=== PATIENT | male | born 1960 | race Caucasian/White ===

== ENCOUNTER 2017-07-13 05:28 | Inpatient (IN) | payer BC ==
[2017-07-13] MEDS ORDERED: Lactated Ringers 1,000 ML IV SCH (06:30)
[2017-07-13] MEDS ORDERED: Thrombin (Bovine) 5,000 Unit Kit ONE (06:53)
[2017-07-13] MEDS ORDERED: ceFAZolin 2 GM in Sodium Chloride 0.9% 50 ML IV ONE (07:00)
[2017-07-13] MEDS ORDERED: Albuterol/Ipratropium 3.0-0.5 MG/3 ML Neb Soln NEB ONE (07:25)
[2017-07-13] MEDS ORDERED: Dexamethasone 4 MG/ML SDV ONE (07:28)
[2017-07-13] MEDS ORDERED: Propofol 200 MG/20 ML SDV ONE ×2 (07:28→09:48)
[2017-07-13] MEDS ORDERED: Ondansetron 4 MG/2 ML SDV ONE (07:28)
[2017-07-13] MEDS ORDERED: Rocuronium 50 MG/5 ML Vial ONE (07:28)
[2017-07-13] MEDS ORDERED: Ketamine 500 MG/5 ML MDV IV ONE (07:45)
[2017-07-13] MEDS ORDERED: Linezolid 200 MG/100 ML Bag IV ONE (09:21)
[2017-07-13] MEDS ORDERED: Naloxone 0.4 MG/ML SDV IV PRN (10:05)
[2017-07-13] MEDS: HYDROmorphone/Normal Saline 15 MG/30 ML PCA IV PRN ×2 (10:10→11:15)
[2017-07-13] MEDS ORDERED: hydrOXYzine HCl 100 MG/2 ML SDV IM ONE (11:29)
[2017-07-13] MEDS: Dextrose 5%-Lactated Ringers 1,000 ML IV SCH ×2 (11:57→20:08)
[2017-07-13] MEDS ORDERED: Thrombin (Bovine) 5,000 Unit Kit INJECT ONE (11:58)
[2017-07-13] MEDS ORDERED: hydrOXYzine HCl 100 MG/2 ML SDV IM PRN (12:38)
[2017-07-13] MEDS ORDERED: hydrOXYzine HCl 25 MG Tab PO PRN (12:39)
[2017-07-13] MEDS ORDERED: Cyclobenzaprine 10 MG Tab PO PRN (12:40)
--- NOTE | 2017-07-13 16:33 | OR ---
DATE OF PROCEDURE: 07/13/2017 PREOPERATIVE DIAGNOSIS: Lumbar stenosis, L5-S1. POSTOPERATIVE DIAGNOSIS: Lumbar stenosis, L5-S1. PROCEDURE: Anterior lumbar interbody fusion, L5-S1. CO SURGEON: Rodriguez Herrera MD BREAST BUFFER: KRYS Beckford. ANESTHESIA: General endotracheal intubation. FLUID: Lactated Ringer solution. ESTIMATED BLOOD LOSS: Less than 25 mL. COMPLICATIONS: None. SPECIMEN: None. DISCHARGE DISPOSITION: Stable to PACU. INSTRUMENTATION: Globus Magnify 25 x 31, 15 degree, 14-17 mm with three 30 mm screws and Signify allograft. INDICATION FOR THE PROCEDURE: The patient was seen preoperatively by myself in the clinic. 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 He had modic changes as well which supported the above-mentioned diagnosis. Preoperative imaging confirmed the above- mentioned diagnosis. Risks and benefits of the procedure were explained to the patient, and an informed consent was obtained. DETAILS OF PROCEDURE: The patient was seen preoperatively by myself and the Anesthesia Staff in the preop holding area where the operative site was marked. He was brought to the operative suite by the Anesthesia Staff where general anesthesia was administered. Neuromonitoring leads were placed. Sterile Lugo catheter was placed. The fluoroscopy unit was draped in a sterile manner. All extremities were found to be well padded. The site was prepped and draped in a sterile manner. Please see Dr. Rodriguez Herrera's notes for exposure. After adequate exposure had been obtained, I used the Bovie electrocautery unit. I used a spinal needle, rather to confirm the disk space level with lateral fluoroscopy as Dr. Herrera had done before. We then used Bovie electrocautery to demarcate the vertebral endplate margins to remove any soft tissue. We then used a pituitary, Roberts, Kerrisons, and curettes to remove the disc at this level and rough up the inferior endplate of L5, superior endplate of S1. I then used negrita to distract up to a 15 and visualize as this seemed to be the more than adequate. We then placed Signify allograft on the right side of the disc and then inserted our implant and expanded it. We then placed our screws by using an awl first and then placing the screws, locking the screws with locking mechanism on the anterior plate portion of the implant. After this had been accomplished, we then took final films and then please see Dr. Rodriguez Herrera's note for closure. Warren Herrera DO /[id number]
[2017-07-13] MEDS: Gabapentin 300 MG Cap PO SCH ×2 (16:47→21:14)
[2017-07-13] MEDS: ceFAZolin 2 GM in Sodium Chloride 0.9% 50 ML IV SCH ×2 (17:05→23:28)
[2017-07-13] MEDS: Tamsulosin 0.4 MG Cap.ER PO SCH (21:01)
[2017-07-13] MEDS ORDERED: Lactated Ringers 500 ML IV SCH (23:00)
[2017-07-14] MEDS: Gabapentin 300 MG Cap PO SCH ×4 (05:21→21:28)
[2017-07-14] MEDS: ceFAZolin 2 GM in Sodium Chloride 0.9% 50 ML IV SCH (07:36)
[2017-07-14] MEDS: Acetaminophen/HYDROcodone 325-5 MG Tab PO PRN ×2 (08:25→15:48)
[2017-07-14] MEDS: Hydrochlorothiazide/Triamterene 25-37.5 MG Cap PO SCH (08:43)
[2017-07-14] MEDS: Enoxaparin 40 MG/0.4 ML Syringe SUBCUT SCH (08:44)
[2017-07-14] MEDS ORDERED: Hydrochlorothiazide/Triamterene 25-37.5 MG Cap PO SCH (09:00)
[2017-07-14] MEDS ORDERED: Gabapentin 300 MG Cap PO SCH (10:00)
--- NOTE | 2017-07-14 10:09 | PN ---
DATE OF SERVICE: 07/14/2017 SUBJECTIVE: Cezar is postop day #1. Vital signs have been stable. Lugo catheter was removed at 0500 hours. He has not voided yet. He is up sitting in the chair and has been ambulating. REVIEW OF SYSTEMS: Complete review of systems negative for any pertinent positives and negatives with the exception of he is very tired. OBJECTIVE: GENERAL: Cezar Roblero is a pleasant 57-year-old male. He is sitting up in the chair, as stated above. VITAL SIGNS: TPR 99.9, 89, 16, and blood pressure 124/94. HEENT: Negative. NECK: Supple. HEART: Regular rate and rhythm. LUNGS: Clear. ABDOMEN: Dressings dry and intact. Abdominal binder is on. BACK: He has his back brace on. EXTREMITIES: Without peripheral edema. ASSESSMENT: Anterior lumbar interbody fusion at L5-S1 for lumbar stenosis at L5-S1. PLAN: 1. Regular diet. 2. Senna Plus one tab p.o. b.i.d. 3. Neurontin 600 mg p.o. q.i.d. 4. Dyazide 25/37.5 mg 1 tablet daily. 5. Decrease D5LR to 100 mL per hour. 6. Good pulmonary toilet encouraged. 7. Discontinue TRANSITION MGR. 8. Discontinue continuous pulse ox. 9. Dressing off, may shower. 10.Rx [place] 5/325 mg 1 to 2 every 4 hours p.r.n. pain. 11.We will evaluate p.r.n. or in a.m. Judith Cook PA-C /[id number]
[2017-07-14] MEDS: Dextrose 5%-Lactated Ringers 1,000 ML IV SCH ×2 (11:40→21:30)
[2017-07-14] MEDS: Ondansetron 4 MG/2 ML SDV IVPUSH PRN ×2 (13:34→20:24)
--- NOTE | 2017-07-14 13:35 | PCM.PN ---
- General Info Date of Service: 07/14/17 Functional Status: Reports: Pain Controlled, Tolerating Diet, Ambulating, Urinating - Patient Data Vitals - Most Recent: Last Vital Signs Temp 37.6 C 07/14/17 11:15 Pulse 94 07/14/17 11:15 Resp 18 07/14/17 11:15 BP 140/95 H 07/14/17 11:15 Pulse Ox 92 L 07/14/17 11:15 Weight - Most Recent: 143 lb 3.2 oz I&O - Last 24 Hours: Intake & Output 07/13/17 07/14/17 07/14/17 22:59 06:59 14:59 Intake Total 685 2202 1292 Output Total 360 215 900 Balance 325 1987 392 Med Orders - Current: Current Medications Hydrocodone Bitart/Acetaminophen ([place] 325-5 Mg) 1 - 2 tab PO Q4H PRN PRN Reason: Pain Last Admin: 07/14/17 08:25 Dose: 2 tab Cyclobenzaprine HCl (Flexeril) 10 mg PO Q6H PRN PRN Reason: MUSCLE SPASM Enoxaparin Sodium (Lovenox) 40 mg SUBCUT DAILY [facility] Last Admin: 07/14/17 08:44 Dose: 40 mg Gabapentin (Neurontin) 600 mg PO QID [facility] Last Admin: 07/14/17 10:32 Dose: 600 mg Hydroxyzine HCl (Vistaril) 100 mg IM Q4H PRN PRN Reason: PAIN Hydroxyzine HCl (Atarax) 100 mg PO Q4H PRN PRN Reason: PAIN Dextrose/Lactated Ringer's (Dextrose 5%-Lactated Ringers) 1,000 mls @ 100 mls/ hr IV ASDIRECTED [facility] Last Admin: 07/14/17 11:40 Dose: 100 mls/hr Naloxone HCl (Narcan) 0.1 mg IV ASDIRECTED PRN PRN Reason: decreased respiratory rate Naproxen (Naproxen Sodium) 220 mg PO BID PRN PRN Reason: PAIN Ondansetron HCl (Zofran) 4 mg IVPUSH Q4H PRN PRN Reason: NAUSEA Senna/Docusate Sodium (Senna Plus) 1 tab PO BID [facility] Last Admin: 07/14/17 08:43 Dose: 1 tab Tamsulosin HCl (Flomax) 0.4 mg PO BEDTIME [facility] Last Admin: 07/13/17 21:01 Dose: 0.4 mg Triamterene/HCTZ (Dyazide 25-37.5 Mg) 1 each PO DAILY [facility] Last Admin: 07/14/17 08:43 Dose: 1 each Discontinued Medications Albuterol/Ipratropium (Duoneb 3.0-0.5 Mg/3 Ml) 3 ml NEB ONETIME ONE Stop: 07/13/17 07:26 Last Admin: 07/13/17 07:24 Dose: 3 ml Amitriptyline HCl (Elavil) 50 mg PO BEDTIME [facility] Last Admin: 07/13/17 21:02 Dose: Not Given Dexamethasone (Dexamethasone) Confirm Administered Dose 4 mg .ROUTE .STK-MED ONE Stop: 07/13/17 07:29 Fentanyl Citrate (Fentanyl) Confirm Administered Dose 500 mcg .ROUTE .STK-MED ONE Stop: 07/13/17 07:29 Fentanyl Citrate (Fentanyl) Confirm Administered Dose 500 mcg .ROUTE .STK-MED ONE Stop: 07/13/17 09:49 Gabapentin (Neurontin) 600 mg PO QID [facility] Hydromorphone HCl (Dilaudid Fabrication Lead 15 Mg In Ns 30 Ml) 0 mg IV ASDIRECTED PRN; Protocol PRN Reason: PAIN Last Admin: 07/13/17 11:15 Dose: 0.3 mg Hydroxyzine HCl (Vistaril) 50 mg IM ONETIME ONE Stop: 07/13/17 11:30 Last Admin: 07/13/17 11:47 Dose: 50 mg Lactated Ringer's (Ringers, Lactated) 1,000 mls @ 125 mls/hr IV ASDIRECTED [facility] Last Admin: 07/13/17 06:14 Dose: 125 mls/hr Cefazolin Sodium 2 gm/ Sodium (Chloride) 50 mls @ 100 mls/hr IV ONETIME ONE Stop: 07/13/17 07:29 Last Admin: 07/13/17 08:25 Dose: 100 mls/hr Tranexamic Acid 700 mg/ Sodium (Chloride) 57 mls @ 228 mls/hr IV Q3H [facility] Stop: 07/13/17 10:59 Last Admin: 07/13/17 11:17 Dose: 228 mls/hr Ketamine HCl 100 mg/ Sodium (Chloride) 100 mls @ 21 mls/hr IV ASDIRECTED [facility] Stop: 07/13/17 11:45 Linezolid (Zyvox) Confirm Administered Dose 100 mls @ as directed .ROUTE .STK- MED ONE Stop: 07/13/17 06:54 Dextrose/Lactated Ringer's (Dextrose 5%-Lactated Ringers) 1,000 mls @ 150 mls/ hr IV ASDIRECTED [facility] Last Admin: 07/13/17 20:08 Dose: 150 mls/hr Cefazolin Sodium 2 gm/ Sodium (Chloride) 50 mls @ 100 mls/hr IV Q8H [facility] Stop: 07/14/17 08:29 Last Admin: 07/14/17 07:36 Dose: 100 mls/hr Lactated Ringer's (Ringers, Lactated) 500 mls @ 250 mls/hr IV .BOLUS [facility] Last Admin: 07/13/17 23:22 Dose: 250 mls/hr Ketamine HCl (Ketalar) 35 mg IV ONETIME ONE Stop: 07/13/17 07:46 Last Admin: 07/13/17 13:35 Dose: Not Given Linezolid (Zyvox) 200 mg IV .STK-MED ONE Stop: 07/13/17 09:22 Last Admin: 07/13/17 09:21 Dose: 200 mg Ondansetron HCl (Zofran) Confirm Administered Dose 4 mg .ROUTE .STK-MED ONE Stop: 07/13/17 07:29 Propofol (Diprivan 20 Ml) Confirm Administered Dose 200 mg .ROUTE .STK-MED ONE Stop: 07/13/17 07:29 Propofol (Diprivan 20 Ml) Confirm Administered Dose 800 mg .ROUTE .STK-MED ONE Stop: 07/13/17 09:49 Rocuronium [place] (Zemuron) Confirm Administered Dose 50 mg .ROUTE .STK-MED ONE Stop: 07/13/17 07:29 Thrombin (Thrombin-Jmi) Confirm Administered Dose 15,000 unit .ROUTE .STK-MED ONE Stop: 07/13/17 06:54 Last Admin: 07/13/17 09:17 Dose: 5,000 unit Thrombin (Thrombin-Jmi) 5,000 unit INJECT .STK-MED ONE Stop: 07/13/17 11:59 Triamterene/HCTZ (Dyazide 25-37.5 Mg) 1 each PO DAILY [facility] Last Admin: 07/14/17 09:54 Dose: Not Given - Exam General: Alert, Oriented Extremities: Normal Inspection, Normal Range of Motion, Non-Tender, No Pedal Edema, Normal Capillary Refill Skin: Warm, Dry, Intact Wound/Incisions: Healing Well, Dressing Dry and Intact Neurological: No New Focal Deficit, Strength Equal Bilateral, Reflexes Equal Bilateral - Problem List Review Problem List Initiated/Reviewed/Updated: Yes - Plan Plan:: Cezar is status postop day 1 of anterior lumbar fusion. He is doing very well. He is ambulatory without any difficulties. Patient's pain is under control at this time. Plan: We will continue to observe for any difficulties. We want him to continue with oral pain medication. He is to work with PT OT for strengthening. We will possibly send him home tomorrow depending on how he is doing.
[2017-07-14] MEDS ORDERED: HYDROmorphone/Normal Saline 15 MG/30 ML PCA IV SCH (18:15)
[2017-07-14] MEDS: Tamsulosin 0.4 MG Cap.ER PO SCH (20:21)
[2017-07-15] MEDS: Metoclopramide 10 MG/2 ML SDV IV SCH ×2 (00:15→05:56)
[2017-07-15] MEDS: Gabapentin 300 MG Cap PO SCH ×4 (05:56→21:00)
[2017-07-15] MEDS ORDERED: HYDROmorphone/Normal Saline 15 MG/30 ML PCA IV PRN (07:10)
[2017-07-15] MEDS: Dextrose 5%-Lactated Ringers 1,000 ML IV SCH (07:31)
[2017-07-15] MEDS: Enoxaparin 40 MG/0.4 ML Syringe SUBCUT SCH (08:49)
[2017-07-15] MEDS: Bisacodyl 5 MG Tab PO SCH ×2 (08:49→20:57)
[2017-07-15] MEDS: Hydrochlorothiazide/Triamterene 25-37.5 MG Cap PO SCH (08:49)
--- NOTE | 2017-07-15 11:03 | PN ---
DATE OF SERVICE: 07/15/2017 SUBJECTIVE: Cezar had a temperature max of 100.2. He has been nauseated. His diet was backed off. He is on Reglan 10 mg IV 6 hours scheduled for nausea. He reports his pain is controlled. REVIEW OF SYSTEMS: Remainder of review of systems negative for any pertinent positives or negatives. OBJECTIVE: GENERAL: Cezar Roblero is a 57-year-old male lying in bed, sleepy. VITAL SIGNS: TPR 99, 82, 16, blood pressure 120/82. Oral intake yesterday was 2440. He had a 25 mL emesis and urine output was 3530. HEENT: Negative. NECK: Supple. HEART: Regular rate and rhythm. LUNGS: Clear. ABDOMEN: Dressings dry and intact. Abdominal binder is on. EXTREMITIES: Without peripheral edema. ASSESSMENT: 1. Anterior lumbar interbody fusion of L5-S1 for lumbar stenosis at L5-S1. 2. Postoperative ileus. PLAN: 1. Discontinue regular diet. 2. Clear liquid diet, start out very sparingly. 3. Dulcolax (Bisacodyl) tabs 20 mg b.i.d. p.o. to discontinue when the patient starts having bowel movements. 4. Good pulmonary toilet encouraged. 5. We will evaluate p.r.n. or in a.m. Judith Cook PA-C /[id number]
[2017-07-15] MEDS: Acetaminophen/HYDROcodone 325-5 MG Tab PO PRN ×3 (12:06→21:44)
--- NOTE | 2017-07-15 12:26 | PCM.PN ---
- General Info Date of Service: 07/15/17 Functional Status: Reports: Pain Controlled, Tolerating Diet, Ambulating, Urinating - Patient Data Vitals - Most Recent: Last Vital Signs Temp 37.5 C 07/15/17 11:32 Pulse 98 07/15/17 11:32 Resp 16 07/15/17 11:32 BP 139/96 H 07/15/17 11:32 Pulse Ox 93 L 07/15/17 11:32 Weight - Most Recent: 143 lb 3.2 oz I&O - Last 24 Hours: Intake & Output 07/14/17 07/15/17 07/15/17 22:59 06:59 14:59 Intake Total 1960 1750 1360 Output Total 1700 300 Balance 260 1750 1060 Med Orders - Current: Current Medications Hydrocodone Bitart/Acetaminophen ([place] 325-5 Mg) 1 - 2 tab PO Q4H PRN PRN Reason: Pain Last Admin: 07/15/17 12:06 Dose: 2 tab Bisacodyl (Dulcolax) 20 mg PO BID [facility] Last Admin: 07/15/17 08:49 Dose: 20 mg Cyclobenzaprine HCl (Flexeril) 10 mg PO Q6H PRN PRN Reason: MUSCLE SPASM Enoxaparin Sodium (Lovenox) 40 mg SUBCUT DAILY [facility] Last Admin: 07/15/17 08:49 Dose: 40 mg Gabapentin (Neurontin) 600 mg PO QID [facility] Last Admin: 07/15/17 10:08 Dose: 600 mg Hydroxyzine HCl (Vistaril) 100 mg IM Q4H PRN PRN Reason: PAIN Hydroxyzine HCl (Atarax) 100 mg PO Q4H PRN PRN Reason: PAIN Naproxen (Naproxen Sodium) 220 mg PO BID PRN PRN Reason: PAIN Senna/Docusate Sodium (Senna Plus) 1 tab PO BID [facility] Last Admin: 07/15/17 08:50 Dose: 1 tab Tamsulosin HCl (Flomax) 0.4 mg PO BEDTIME [facility] Last Admin: 07/14/17 20:21 Dose: 0.4 mg Triamterene/HCTZ (Dyazide 25-37.5 Mg) 1 each PO DAILY [facility] Last Admin: 07/15/17 08:49 Dose: 1 each Discontinued Medications Albuterol/Ipratropium (Duoneb 3.0-0.5 Mg/3 Ml) 3 ml NEB ONETIME ONE Stop: 07/13/17 07:26 Last Admin: 07/13/17 07:24 Dose: 3 ml Amitriptyline HCl (Elavil) 50 mg PO BEDTIME [facility] Last Admin: 07/13/17 21:02 Dose: Not Given Dexamethasone (Dexamethasone) Confirm Administered Dose 4 mg .ROUTE .STK-MED ONE Stop: 07/13/17 07:29 Fentanyl Citrate (Fentanyl) Confirm Administered Dose 500 mcg .ROUTE .STK-MED ONE Stop: 07/13/17 07:29 Fentanyl Citrate (Fentanyl) Confirm Administered Dose 500 mcg .ROUTE .STK-MED ONE Stop: 07/13/17 09:49 Gabapentin (Neurontin) 600 mg PO QID [facility] Hydromorphone HCl (Dilaudid Marketing Reporting Analyst 15 Mg In Ns 30 Ml) 0 mg IV ASDIRECTED PRN; Protocol PRN Reason: PAIN Last Admin: 07/13/17 11:15 Dose: 0.3 mg Hydromorphone HCl (Dilaudid Marketing Reporting Analyst 15 Mg In Ns 30 Ml) 15 mg IV ASDIRECTED [facility] PRN Reason: Protocol Last Admin: 07/14/17 18:28 Dose: 15 mg Hydromorphone HCl (Dilaudid Marketing Reporting Analyst 15 Mg In Ns 30 Ml) 0 mg IV ASDIRECTED PRN; Protocol PRN Reason: PAIN Hydroxyzine HCl (Vistaril) 50 mg IM ONETIME ONE Stop: 07/13/17 11:30 Last Admin: 07/13/17 11:47 Dose: 50 mg Lactated Ringer's (Ringers, Lactated) 1,000 mls @ 125 mls/hr IV ASDIRECTED [facility] Last Admin: 07/13/17 06:14 Dose: 125 mls/hr Cefazolin Sodium 2 gm/ Sodium (Chloride) 50 mls @ 100 mls/hr IV ONETIME ONE Stop: 07/13/17 07:29 Last Admin: 07/13/17 08:25 Dose: 100 mls/hr Tranexamic Acid 700 mg/ Sodium (Chloride) 57 mls @ 228 mls/hr IV Q3H [facility] Stop: 07/13/17 10:59 Last Admin: 07/13/17 11:17 Dose: 228 mls/hr Ketamine HCl 100 mg/ Sodium (Chloride) 100 mls @ 21 mls/hr IV ASDIRECTED [facility] Stop: 07/13/17 11:45 Linezolid (Zyvox) Confirm Administered Dose 100 mls @ as directed .ROUTE .STK- MED ONE Stop: 07/13/17 06:54 Dextrose/Lactated Ringer's (Dextrose 5%-Lactated Ringers) 1,000 mls @ 150 mls/ hr IV ASDIRECTED [facility] Last Admin: 07/13/17 20:08 Dose: 150 mls/hr Cefazolin Sodium 2 gm/ Sodium (Chloride) 50 mls @ 100 mls/hr IV Q8H [facility] Stop: 07/14/17 08:29 Last Admin: 07/14/17 07:36 Dose: 100 mls/hr Lactated Ringer's (Ringers, Lactated) 500 mls @ 250 mls/hr IV .BOLUS [facility] Last Admin: 07/13/17 23:22 Dose: 250 mls/hr Dextrose/Lactated Ringer's (Dextrose 5%-Lactated Ringers) 1,000 mls @ 100 mls/ hr IV ASDIRECTED [facility] Last Admin: 07/15/17 07:31 Dose: 100 mls/hr Ketamine HCl (Ketalar) 35 mg IV ONETIME ONE Stop: 07/13/17 07:46 Last Admin: 07/13/17 13:35 Dose: Not Given Linezolid (Zyvox) 200 mg IV .STK-MED ONE Stop: 07/13/17 09:22 Last Admin: 07/13/17 09:21 Dose: 200 mg Metoclopramide HCl (Reglan) 10 mg IV Q6H [facility] Last Admin: 07/15/17 05:56 Dose: 10 mg Naloxone HCl (Narcan) 0.1 mg IV ASDIRECTED PRN PRN Reason: decreased respiratory rate Ondansetron HCl (Zofran) Confirm Administered Dose 4 mg .ROUTE .STK-MED ONE Stop: 07/13/17 07:29 Ondansetron HCl (Zofran) 4 mg IVPUSH Q4H PRN PRN Reason: NAUSEA Last Admin: 07/14/17 20:24 Dose: 4 mg Propofol (Diprivan 20 Ml) Confirm Administered Dose 200 mg .ROUTE .STK-MED ONE Stop: 07/13/17 07:29 Propofol (Diprivan 20 Ml) Confirm Administered Dose 800 mg .ROUTE .STK-MED ONE Stop: 07/13/17 09:49 Rocuronium [place] (Zemuron) Confirm Administered Dose 50 mg .ROUTE .STK-MED ONE Stop: 07/13/17 07:29 Thrombin (Thrombin-Jmi) Confirm Administered Dose 15,000 unit .ROUTE .STK-MED ONE Stop: 07/13/17 06:54 Last Admin: 07/13/17 09:17 Dose: 5,000 unit Thrombin (Thrombin-Jmi) 5,000 unit INJECT .STK-MED ONE Stop: 07/13/17 11:59 Triamterene/HCTZ (Dyazide 25-37.5 Mg) 1 each PO DAILY [facility] Last Admin: 07/14/17 09:54 Dose: Not Given - Exam General: Alert, Oriented Extremities: Normal Inspection, Normal Range of Motion, Non-Tender Skin: Warm, Dry, Intact Neurological: No New Focal Deficit, Normal Gait, Strength Equal Bilateral, Reflexes Equal Bilateral Psy/Mental Status: Alert - Problem List Review Problem List Initiated/Reviewed/Updated: Yes - Plan Plan:: Cezar is a pleasant 57-year-old male who is status postop day 2 of a anterior lumbar fusion. He is doing very well orthopedically. He has minimal pain at this time. He has equal strength in bilateral lower external knees. He notes that his pain as a 1 out of a 10 in his lumbar area. We do note that he has normal bowel movement at this time in that general surgery is concerned regarding that. They did put him back on nothing by mouth. A long discussion with this patient that this is something that we will hope to resolve soon. Patient is looking forward to going home. We'll continue to monitor daily and see how he does.
[2017-07-15] MEDS ORDERED: Diazepam 5 MG Tab PO PRN (14:23)
[2017-07-15] MEDS: Tamsulosin 0.4 MG Cap.ER PO SCH (20:57)
[2017-07-16] MEDS: Acetaminophen/HYDROcodone 325-5 MG Tab PO PRN ×2 (02:37→08:52)
[2017-07-16 08:50] VITALS: BP 120/85
[2017-07-16] MEDS: Bisacodyl 5 MG Tab PO SCH (08:53)
[2017-07-16] MEDS: Hydrochlorothiazide/Triamterene 25-37.5 MG Cap PO SCH (08:55)
[2017-07-16] MEDS: Gabapentin 300 MG Cap PO SCH (08:55)
[2017-07-16] MEDS: Enoxaparin 40 MG/0.4 ML Syringe SUBCUT SCH (08:55)
--- NOTE | 2017-07-16 09:18 | PCM.DCSUM1 ---
Discharge Summary - Hospital Course Free Text/Narrative:: Cezar is a pleasant 57 year old male who is doing very well. His pain is under control with oral pain medication. He is ambulating without any difficulties. - Discharge Data Discharge Date: 07/16/17 Discharge Disposition: Home, Self-Care 01 Condition: Good - Patient Summary/Data Consults: Consultations 07/14/17 08:00 Consult to Physical Therapy [PT Evaluation and Treatment] [CONS] Routine Please Evaluate and Treat. PT Reason for Consult: RADHA This query below is only for informational purposes and is not editable. - Patient Instructions Diet: Usual Diet as Tolerated, Drink 8-10+ Glasses/Day Activity: As Tolerated, No Lifting Over 10 Pounds Activity, Other: As Directed By Dr. Warren Herrera Driving: Do Not Drive Showering/Bathing: May Shower Wound/Incision Care: Keep Operative Site/Wound Site Clean and Dry Other/Special Instructions: Use incentive inspirometer 10 times every hour while awake for 1 week - Discharge Plan Prescriptions/Med Rec: Acetaminophen/HYDROcodone [[place] 325-5 MG] 1 - 2 tab PO Q4H PRN #50 tablet PRN Reason: Pain Cyclobenzaprine [Flexeril] 10 mg PO Q6H PRN #30 tablet PRN Reason: muscle spasms Tamsulosin [Flomax] 0.4 mg PO BEDTIME #30 cap.er Home Medications: Home Meds Gabapentin 600 mg PO QID 04/25/15 [History] Naproxen Sodium [Aleve] 220 mg PO ASDIRECTED PRN 04/25/15 [History] Triamterene/Hydrochlorothiazid [Triamterene-HCTZ 37.5-25 MG] 1 tab PO DAILY [History] Acetaminophen/HYDROcodone [[place] 325-5 MG] 1 - 2 tab PO Q4H PRN #50 tablet 07/16 [Rx] Bisacodyl [Dulcolax] 20 mg PO BID tablet 07/16/17 [Rx] Cyclobenzaprine [Flexeril] 10 mg PO Q6H PRN #30 tablet 07/16/17 [Rx] Docusate Sodium/Sennosides [Senna Plus] 1 tab PO BID tablet 07/16/17 [Rx] Tamsulosin [Flomax] 0.4 mg PO BEDTIME #30 cap.er 07/16/17 [Rx] Referrals: Judith Cook PA-C [Physician Nib Assembler] - 07/23/17 9:00 am Warren Herrera DO [Physician] - (1 month - ) - Discharge Summary/Plan Comment DC Time >30 min.: Yes Discharge Summary/Plan Comment: Cezar will be discharged home today. He will follow up with ortho in 1 month. He will follow up with general surgery in 1 week. He is to take his oral pain medication as prescribed. He is encouraged to drink liquids to avoid constipation. He is to ambulate often. Back brace is recommended when up. - Patient Data Vitals - Most Recent: Last Vital Signs Temp 36.4 C 07/16/17 08:48 Pulse 82 07/16/17 08:48 Resp 14 07/16/17 08:48 BP 120/85 07/16/17 08:48 Pulse Ox 91 L 07/16/17 08:48 Weight - Most Recent: 143 lb 3.2 oz I&O - Last 24 hours: Intake & Output 07/15/17 07/16/17 07/16/17 22:59 06:59 14:59 Intake Total 700 Balance 700 Med Orders - Current: Current Medications Hydrocodone Bitart/Acetaminophen ([place] 325-5 Mg) 1 - 2 tab PO Q4H PRN PRN Reason: Pain Last Admin: 07/16/17 08:52 Dose: 2 tab Bisacodyl (Dulcolax) 20 mg PO BID [facility] Last Admin: 07/16/17 08:53 Dose: 20 mg Cyclobenzaprine HCl (Flexeril) 10 mg PO Q6H PRN PRN Reason: MUSCLE SPASM Diazepam (Valium.) 5 mg PO QID PRN PRN Reason: Spasms Enoxaparin Sodium (Lovenox) 40 mg SUBCUT DAILY [facility] Last Admin: 07/16/17 08:55 Dose: 40 mg Gabapentin (Neurontin) 600 mg PO QID [facility] Last Admin: 07/16/17 08:55 Dose: 600 mg Hydroxyzine HCl (Vistaril) 100 mg IM Q4H PRN PRN Reason: PAIN Hydroxyzine HCl (Atarax) 100 mg PO Q4H PRN PRN Reason: PAIN Naproxen (Naproxen Sodium) 220 mg PO BID PRN PRN Reason: PAIN Senna/Docusate Sodium (Senna Plus) 1 tab PO BID [facility] Last Admin: 07/16/17 08:54 Dose: 1 tab Tamsulosin HCl (Flomax) 0.4 mg PO BEDTIME [facility] Last Admin: 07/15/17 20:57 Dose: 0.4 mg Triamterene/HCTZ (Dyazide 25-37.5 Mg) 1 each PO DAILY [facility] Last Admin: 07/16/17 08:55 Dose: 1 each Discontinued Medications Albuterol/Ipratropium (Duoneb 3.0-0.5 Mg/3 Ml) 3 ml NEB ONETIME ONE Stop: 07/13/17 07:26 Last Admin: 07/13/17 07:24 Dose: 3 ml Amitriptyline HCl (Elavil) 50 mg PO BEDTIME [facility] Last Admin: 07/13/17 21:02 Dose: Not Given Dexamethasone (Dexamethasone) Confirm Administered Dose 4 mg .ROUTE .STK-MED ONE Stop: 07/13/17 07:29 Fentanyl Citrate (Fentanyl) Confirm Administered Dose 500 mcg .ROUTE .STK-MED ONE Stop: 07/13/17 07:29 Fentanyl Citrate (Fentanyl) Confirm Administered Dose 500 mcg .ROUTE .STK-MED ONE Stop: 07/13/17 09:49 Gabapentin (Neurontin) 600 mg PO QID [facility] Hydromorphone HCl (Dilaudid Estimating Engineer 15 Mg In Ns 30 Ml) 0 mg IV ASDIRECTED PRN; Protocol PRN Reason: PAIN Last Admin: 07/13/17 11:15 Dose: 0.3 mg Hydromorphone HCl (Dilaudid Estimating Engineer 15 Mg In Ns 30 Ml) 15 mg IV ASDIRECTED ALESSANDRA PRN Reason: Protocol Last Admin: 07/14/17 18:28 Dose: 15 mg Hydromorphone HCl (Dilaudid Estimating Engineer 15 Mg In Ns 30 Ml) 0 mg IV ASDIRECTED PRN; Protocol PRN Reason: PAIN Hydroxyzine HCl (Vistaril) 50 mg IM ONETIME ONE Stop: 07/13/17 11:30 Last Admin: 07/13/17 11:47 Dose: 50 mg Lactated Ringer's (Ringers, Lactated) 1,000 mls @ 125 mls/hr IV ASDIRECTED [facility] Last Admin: 07/13/17 06:14 Dose: 125 mls/hr Cefazolin Sodium 2 gm/ Sodium (Chloride) 50 mls @ 100 mls/hr IV ONETIME ONE Stop: 07/13/17 07:29 Last Admin: 07/13/17 08:25 Dose: 100 mls/hr Tranexamic Acid 700 mg/ Sodium (Chloride) 57 mls @ 228 mls/hr IV Q3H ALESSANDRA Stop: 07/13/17 10:59 Last Admin: 07/13/17 11:17 Dose: 228 mls/hr Ketamine HCl 100 mg/ Sodium (Chloride) 100 mls @ 21 mls/hr IV ASDIRECTED [facility] Stop: 07/13/17 11:45 Linezolid (Zyvox) Confirm Administered Dose 100 mls @ as directed .ROUTE .STK- MED ONE Stop: 07/13/17 06:54 Dextrose/Lactated Ringer's (Dextrose 5%-Lactated Ringers) 1,000 mls @ 150 mls/ hr IV ASDIRECTED [facility] Last Admin: 07/13/17 20:08 Dose: 150 mls/hr Cefazolin Sodium 2 gm/ Sodium (Chloride) 50 mls @ 100 mls/hr IV Q8H [facility] Stop: 07/14/17 08:29 Last Admin: 07/14/17 07:36 Dose: 100 mls/hr Lactated Ringer's (Ringers, Lactated) 500 mls @ 250 mls/hr IV .BOLUS [facility] Last Admin: 07/13/17 23:22 Dose: 250 mls/hr Dextrose/Lactated Ringer's (Dextrose 5%-Lactated Ringers) 1,000 mls @ 100 mls/ hr IV ASDIRECTED [facility] Last Admin: 07/15/17 07:31 Dose: 100 mls/hr Ketamine HCl (Ketalar) 35 mg IV ONETIME ONE Stop: 07/13/17 07:46 Last Admin: 07/13/17 13:35 Dose: Not Given Linezolid (Zyvox) 200 mg IV .STK-MED ONE Stop: 07/13/17 09:22 Last Admin: 07/13/17 09:21 Dose: 200 mg Metoclopramide HCl (Reglan) 10 mg IV Q6H [facility] Last Admin: 07/15/17 05:56 Dose: 10 mg Naloxone HCl (Narcan) 0.1 mg IV ASDIRECTED PRN PRN Reason: decreased respiratory rate Ondansetron HCl (Zofran) Confirm Administered Dose 4 mg .ROUTE .STK-MED ONE Stop: 07/13/17 07:29 Ondansetron HCl (Zofran) 4 mg IVPUSH Q4H PRN PRN Reason: NAUSEA Last Admin: 07/14/17 20:24 Dose: 4 mg Propofol (Diprivan 20 Ml) Confirm Administered Dose 200 mg .ROUTE .STK-MED ONE Stop: 07/13/17 07:29 Propofol (Diprivan 20 Ml) Confirm Administered Dose 800 mg .ROUTE .STK-MED ONE Stop: 07/13/17 09:49 Rocuronium Parachute (Zemuron) Confirm Administered Dose 50 mg .ROUTE .STK-MED ONE Stop: 07/13/17 07:29 Thrombin (Thrombin-Jmi) Confirm Administered Dose 15,000 unit .ROUTE .STK-MED ONE Stop: 07/13/17 06:54 Last Admin: 07/13/17 09:17 Dose: 5,000 unit Thrombin (Thrombin-Jmi) 5,000 unit INJECT .STK-MED ONE Stop: 07/13/17 11:59 Triamterene/HCTZ (Dyazide 25-37.5 Mg) 1 each PO DAILY [facility] Last Admin: 07/14/17 09:54 Dose: Not Given *Q Meaningful Use (DIS) - VTE *Q VTE Criteria *Q: - Stroke *Q Stroke Criteria *Q: - AMI *Q AMI Criteria *Q:
--- NOTE | 2017-07-19 08:27 | DISCH ---
ADMISSION DIAGNOSES: 1. L5-S1 lumbar stenosis. 2. L5-S1 left foraminal stenosis. 3. Lumbar scoliosis. 4. Hypertension. 5. Tobacco use disorder. DISCHARGE DIAGNOSES: Anterior lumbar interbody fusion of L5 and S1 on 07/13/2017. HISTORY: Cezar is a 57-year-old male, who had chronic back pain. After preoperative evaluation and discussion of possible risks and possible complications, he wished to proceed with surgical procedure. HOSPITAL COURSE: Cezar had his surgery on 07/13/2017. He had no operative complications. On postop day #1, he was started on a regular diet, bowel stimulation and his home medication. He was also changed to oral pain medication. He did develop a postoperative ileus on 07/15/2017. He was backed off to clear liquid diet, started on bowel stimulation and continued good pulmonary function. He did have a bowel movement on 07/15/2017. His oral intake did improve. He had no further nausea or emesis and was able to be discharged to home on postop day 3, without any complications. Cezar is having some clear serosanguineous drainage on his abdominal dressing and Dr. Herrera examined the area and incision is negative. OBJECTIVE: GENERAL: Cezar Roblero is a 57-year-old male. VITAL SIGNS: Height is 5 feet 10 inches, weight is 143 pounds. TPR is 98.1, 80, 18 and blood pressure 120/82. HEENT: Negative. NECK: Supple. HEART: Regular rate and rhythm. LUNGS: Clear. ABDOMEN: Stapled incision, has a little bit of drainage noted, pink serosanguineous drainage, tess intact externally soft and minimally tender. EXTREMITIES: Without peripheral edema. DISPOSITION: Discharged to home. CONDITION: Stable and improving. FOLLOWUP APPOINTMENT: 1. With Judith Cook PA-C, on 07/23/2017 at 9:00 a.m. 2. Followup with Warren Herrera DO in one month, appointment to be made prior to discharge. MEDICATIONS: New prescriptions: 1. [place] 5/325 mg 1 to 2 every 4 hours p.r.n. pain #50. 2. Bisacodyl (Dulcolax) 20 mg oral twice daily. 3. Flexeril 10 mg oral q.6 hours p.r.n. muscle spasms #30. 4. Senna Plus one tablet twice daily. 5. Flomax 0.4 mg at bedtime #30. May stop after 30 days. He is to resume his home medications of gabapentin 600 mg 4 times a day, naproxen 220 mg oral q.6 hours p.r.n. pain, triamterene/hydrochlorothiazide 37.5/25 mg one tablet daily. DISCHARGE DIET: Usual diet as tolerated. Drink 8 to 10 glasses of water a day. ACTIVITY: As tolerated. Walk 6 times daily. No lifting greater than 10 pounds for 6 weeks. Other activity, as directed by Dr. Warren Herrera. Driving after discharge, do not drive on pain medication. May shower. Keep site clean and dry. Change abdominal dressings twice a day and as needed. Wear abdominal binder for 2 weeks and then as tolerated. SPECIAL INSTRUCTION: Use incentive spirometer 10 times every hour while awake.
--- NOTE | 2017-07-19 14:30 | OR ---
DATE OF PROCEDURE: 07/13/2017 PREOPERATIVE DIAGNOSIS: Lumbar stenosis involving L5-S1 level. POSTOPERATIVE DIAGNOSIS: Lumbar stenosis involving L5-S1 level. PROCEDURE: Anterior lumbar interspinal fusion at the L5-S1 level (86652). ANESTHESIA: General. LICENSED PRACTICAL NURSE CLINIC NURSE: KRYS Isidro. COSURGEON: Warren Herrera DO. ANESTHESIA: General. INDICATION FOR PROCEDURE: A 57-year-old male presenting for an anterior lumbar interspinal fusion at the L5-S1 level. General Surgery is involved in this case to provide exposure for the orthopedic phase of the procedure. Potential risks of the procedure were reviewed with the patient including bleeding, infection, injury of the ureter, nerves in the area, potentially resulting in problems such as retrograde ejaculation, vascular injury that might require additional surgeries for correction as well as remote possibility of cardiopulmonary, septic, or hemorrhagic complications leading to and the patient wishes to proceed. DETAILS OF PROCEDURE: The patient was taken to the operating room and after general endotracheal anesthetic was induced, a roll was placed underneath the left knee to offload some of the tension on the psoas muscle. A left paramedian lower abdominal incision was made and carried down through the skin and subcutaneous tissue. The midportion of the anterior rectus sheath was then divided of vertical orientation and the rectus muscle was then retracted medially. This amounted to dissection into the retroperitoneum both laterally and then posteriorly. The peritoneum was then mobilized rightward elevating the ureter at its course of that dissection. As one approached to the area of the aortic bifurcation, that tissue as well as the tissue containing the neuroplexus of low-grade bifurcation were likewise reflected anteriorly with the peritoneum. Initially, retractors were then placed, which had exposed the area of the L5-S1 level. The patient had a fairly high aortic bifurcation making this exposure reasonably straightforward. The spinal vessels were then divided with bipolar cautery and the soft tissue over the L5-S1 interspace dissected free with Kittner as well as bipolar cautery as indicated dividing some small vessels. The right iliac vessels were then retracted rightward and the left ones leftward and superiorly. Spinal needle was placed into the L5-S1 disk and x-ray confirmed that this was the appropriate level. At this point, Dr. Julio César Herrera proceeded to undertake the orthopedic component of the procedure and this will be presented under separate dictation. Once the orthopedic therapy was completed, the area was inspected. Zyvox-containing saline solution was then used to irrigate the field and the retractor was gradually released prior to turning over the case to orthopedics. Good pulses were confirmed in both of the iliac arteries and upon release of retractors, likewise good flow was confirmed within the iliac arteries bilaterally, and there were no bleeding or other problems evident. The ureter was inspected and likewise found to be intact. At this point, the anterior rectus sheath was approximated with a running 2-0 Vicryl stitch. Subcutaneous tissue was approximated with 2 layers of 3-0 Vicryl stitches and the skin with tess. Dressing was applied. The patient was taken to the recovery room in satisfactory condition. Rodriguez Herrera MD /[id number]
== END 2017-07-16 11:00 | disposition home or self-care (01) | DRG 304 ==
LOC: JP.MS 05:28 → JP.SDS 05:29 → EDSTATUS 09:15 → JP.MS 10:55
PROVIDERS: ADMIT Orthopaedic Surgery; ATTEND Surgery
PROC: 0SG00A0 Fusion of Lumbar Vertebral Joint with Interbody Fusion Device, Anterior Approach, Anterior Column, Open Approach (ICD-10-PCS; principal; 2017-07-13)
DX: M48.06 Spinal stenosis, lumbar region (principal); M41.86 Other forms of scoliosis, lumbar region; I10 Essential (primary) hypertension; K56.7 Ileus, unspecified; H54.7 Unspecified visual loss; M54.9 Dorsalgia, unspecified; G89.29 Other chronic pain; M19.90 Unspecified osteoarthritis, unspecified site
CPT/HCPCS: 36415; 76001; 86850; 86900; 86901; 86920; 86922; 94762; 97110-GP; 97140-GP; 97162-GP; 97530-GP; 97535-GP; A9270-GY; C1713; J0690; J1100; J1170; J1650; J2020; J2405; J2704; J2765; J3010; J3410; J7042; J7050; J7120; J7620

== ENCOUNTER 2017-07-24 06:54 | Day surgery (SDC) | payer BC ==
[~2017-07-24 06:54] MED LIST: Bupivacaine 0.5% 50 ML MDV ONE; Lidocaine 1% with EPINEPHrine 1:100,000 50 ML MDV ONE
[2017-07-24] MEDS ORDERED: Sodium Chloride 0.9% 1,000 ML IV SCH (07:30)
[2017-07-24] MEDS ORDERED: ceFAZolin 2 GM in Sodium Chloride 0.9% 50 ML IV ONE (08:15)
[2017-07-24] MEDS ORDERED: ceFAZolin 2 GM in Premix Bag 1 BAG IV ONE (08:15)
[2017-07-24] MEDS ORDERED: fentaNYL 100 MCG/2 ML SDV ONE ×2 (08:23→08:33)
[2017-07-24] MEDS ORDERED: Midazolam 1 MG/ML 2 ML SDV ONE (08:23)
[2017-07-24] MEDS ORDERED: Propofol 200 MG/20 ML SDV ONE ×2 (08:23)
[2017-07-24] MEDS ORDERED: Bacitracin Oint 1 GM U/D Packet ONE (08:38)
[2017-07-24 10:21] VITALS: BP 102/65
--- NOTE | 2017-07-26 10:03 | OR ---
DATE OF PROCEDURE: 07/24/2017 PROCEDURE: Aspiration of seroma versus abscess, left abdomen. PREOPERATIVE DIAGNOSIS: Drainage of abdominal fluid. POSTOPERATIVE DIAGNOSIS: Fluid collection secondary to anterior lumbar interspinal fusion procedure. FINDINGS: 125 mL of seroma versus abscess type fluid. COMPLICATIONS: None. LASER ENGINEER: None. ANESTHESIA: MAC. PROCEDURE IN DETAIL: The patient was placed in supine position. The abdomen was prepped and draped. Initially, an 18-gauge needle used to examine the fluid. This was fortunately able to be aspirated. The aforementioned amount of fluid was removed and sent for culture. This is more consistent with seroma versus infection; however, this was sent for culture. After aspiration, this was irrigated and then also removed. A single bacitracin and Band- Aid was applied. The patient tolerated the procedure well. Naseem Diaz MD /[id number]
== END 2017-07-24 10:20 | disposition home or self-care (01) ==
LOC: JP.SDS 06:54
PROVIDERS: ATTEND Surgery
DX: T81.89XA Other complications of procedures, not elsewhere classified, initial encounter (principal)
CPT/HCPCS: 49082; 87070; 87075; 87205; J0690; J2250; J2704; J3010; J7040; J7050

== ENCOUNTER 2019-07-07 07:17 | Day surgery (SDC) | payer BC ==
[2019-07-07] MEDS ORDERED: Midazolam 1 MG/ML 2 ML SDV ONE (08:14)
[2019-07-07] MEDS ORDERED: fentaNYL 100 MCG/2 ML SDV ONE (08:14)
[2019-07-07] MEDS ORDERED: Propofol 200 MG/20 ML SDV ONE (08:14)
[2019-07-07] MEDS ORDERED: Sodium Chloride 0.9% 1,000 ML IV SCH (08:30)
[2019-07-07 10:09] VITALS: BP 128/82; PULSE 70
--- NOTE | 2019-07-07 14:02 | OR ---
DATE OF PROCEDURE: 07/07/2019 SURGEON: Naseem Diaz MD PROCEDURE: Colonoscopy. FINDINGS: Approximately 8 mm polyp, completely removed using snare in sigmoid colon. COMPLICATIONS: None. SOLUTION ANALYST: None. PREOPERATIVE DIAGNOSIS: Screening colonoscopy. POSTOPERATIVE DIAGNOSIS: Screening colonoscopy. RISKS: Risks, benefits, alternatives, and limitations including, but not limited to infection, bleeding, and perforation were explained to the patient and wished to proceed. PROCEDURE IN DETAIL: The patient was placed in left lateral decubitus position. Digital rectal exam was performed without abnormality. Scope was introduced and advanced atraumatically to the ileocecal valve. Scope was brought back through the ascending, transverse, descending colon, and retroflexed. The aforementioned polyps identified and completely removed using snare. No abnormalities were noted on retroflexion. No evidence of old or new blood. No masses or evidence of colitis. The patient tolerated the procedure well. Naseem Diaz MD /[id number]
== END 2019-07-07 10:10 | disposition home or self-care (01) ==
LOC: JP.SDS 07:17
PROVIDERS: ATTEND Surgery
DX: Z12.11 Encounter for screening for malignant neoplasm of colon (principal); D12.5 Benign neoplasm of sigmoid colon; I10 Essential (primary) hypertension; K21.9 Gastro-esophageal reflux disease without esophagitis; F17.210 Nicotine dependence, cigarettes, uncomplicated; M54.9 Dorsalgia, unspecified; Z86.010 Personal history of colon polyps; Z91.09 Other allergy status, other than to drugs and biological substances
CPT/HCPCS: 45385; J2250; J2704; J3010; J7030; 88305

== ENCOUNTER 2020-01-24 14:43 | Emergency (ER) | payer BC ==
[2020-01-24] MEDS ORDERED: Ondansetron 4 MG/2 ML SDV IVPUSH ONE (15:03)
[2020-01-24] MEDS ORDERED: HYDROmorphone 0.5 MG/0.5 ML Syringe IVPUSH ONE (15:03)
--- NOTE | 2020-01-24 15:16 | EDM.PDOC ---
ED HPI GENERAL MEDICAL PROBLEM - General Chief Complaint: Gastrointestinal Problem Stated Complaint: PAIN,SENT FROM CLINIC Time Seen by Provider: 01/24/20 14:55 Source of Information: Reports: Patient, Family History Limitations: Reports: No Limitations - History of Present Illness INITIAL COMMENTS - FREE TEXT/NARRATIVE: 59-year-old male who has had abdominal pain, bloating, epigastric pain nausea and vomiting with hematemesis and dark stools for the past 2 to 3 days. He went into the clinic and was sent over to the emergency room. No fevers or chills, but he does feel weak and generalized malaise with decreased appetite. According to the he is a regular alcohol consumer. No urinary symptoms, no trauma history. Onset: Sudden (Woke up at 6 AM 3 days ago with nausea and vomiting, hematemesis. He was fine before that) Location: Reports: Abdomen (Abdominal bloating and pain, especially upper abdomen and somewhat to the left) Associated Symptoms: Reports: Loss of Appetite, Malaise, Nausea/Vomiting, Weakness. Denies: Cough, Diaphoresis Epigastric Pain Score (Numeric/FACES): 6 - Related Data Allergies Allergy/AdvReac Type Severity Reaction Status Date / Time nickel Allergy Rash Verified 01/24/20 14:56 Home Meds: Home Meds Gabapentin 600 mg PO QID 04/25/15 [History] Naproxen Sodium [Aleve] 220 mg PO ASDIRECTED PRN 04/25/15 [History] Triamterene/Hydrochlorothiazid [Triamterene-HCTZ 37.5-25 MG] 1 tab PO DAILY [History] Past Medical History HEENT History: Reports: Allergic Rhinitis, Impaired Vision, Other (See Below) Other HEENT History: tinitis Cardiovascular History: Reports: Hypertension Gastrointestinal History: Reports: Chronic Diarrhea, Colon Polyp, GERD Musculoskeletal History: Reports: Back Pain, Chronic, Osteoarthritis, Other ( See Below) Other Musculoskeletal History: s/p ALIF 07/13/17 Neurological History: Reports: Neuropathy, Peripheral Dermatologic History: Reports: None - Infectious Disease History Infectious Disease History: Reports: Chicken Pox - Past Surgical History Head Surgeries/Procedures: Reports: None HEENT Surgical History: Reports: Tonsillectomy Cardiovascular Surgical History: Reports: None GI Surgical History: Reports: Colonoscopy Neurological Surgical History: Reports: Spinal Fusion Musculoskeletal Surgical History: Reports: Carpal Tunnel, Other (See Below) Other Musculoskeletal Surgeries/Procedures:: left miniscus repair x2 Dermatological Surgical History: Reports: None Social & Family History - Family History Family Medical History: Noncontributory - Caffeine Use Caffeine Use: Reports: None ED ROS GENERAL - Review of Systems Review Of Systems: See Below Constitutional: Reports: Malaise, Weakness, Decreased Appetite. Denies: Fever, Chills HEENT: Denies: Vision Change Respiratory: Denies: Shortness of Breath Cardiovascular: Denies: Chest Pain GI/Abdominal: Reports: Abdominal Pain, Diarrhea, Decreased Appetite, Hematemesis , Melena, Nausea, Vomiting : Reports: No Symptoms Skin: Reports: Other ( is concerned he looks lien, pale) Neurological: Denies: Confusion, Headache ED EXAM, GI/ABD - Physical Exam Exam: See Below Exam Limited By: No Limitations General Appearance: Alert, No Apparent Distress, Other (Looks ill, uncomfortable , possibly jaundiced or pale) Eyes: Bilateral: EOMI Head: Atraumatic Respiratory/Chest: No Respiratory Distress, Lungs Clear Cardiovascular: Regular Rate, Rhythm, Tachycardia GI/Abdominal Exam: Tender (React with tenderness to palpation especially in the epigastric and left upper quadrant), Abnormal Bowel Sounds (Literally no bowel sounds are heard) Extremities: No Pedal Edema Neurological: Alert, Oriented, No Motor/Sensory Deficits Psychiatric: Normal Affect, Normal Mood Skin Exam: Warm, Dry, Other (Does look somewhat pale, possible mild jaundice as well as he appears pasty) Course - Vital Signs Last Recorded V/S: Last Vital Signs Temp 98.4 F 01/24/20 16:45 Pulse 108 H 01/24/20 16:45 Resp 16 01/24/20 16:45 BP 100/66 01/24/20 16:45 Pulse Ox 97 01/24/20 16:31 - Orders/Labs/Meds Orders: Active Orders 24 hr Category Date Time Status EKG Documentation Completion [RC] ASDIRECTED Care 01/24/20 15:04 Inactive RED BLOOD CELLS LP [BBK] Stat Lab 01/24/20 15:10 Results TYPE AND SCREEN [BBK] Stat Lab 01/24/20 15:10 Results Transfuse Red Blood Cells [COMM] Stat Oth 01/24/20 15:56 Ordered EKG 12 Lead [EK] Routine Ther 01/24/20 15:03 Stop Req Labs: Laboratory Tests 01/24/20 01/24/20 01/24/20 Range/Units 15:10 15:10 15:10 WBC 16.4 H (4.5-11.0) K/uL RBC 2.79 L (4.30-5.90) M/uL Hgb 9.3 L D (12.0-15.0) g/dL Hct 27.8 L (40.0-54.0) % MCV 100 H (80-98) fL MCH 33 H (27-31) pg MCHC 34 (32-36) % Plt Count 206 (150-400) K/uL Neut % (Auto) 77 H (36-66) % Lymph % (Auto) 13 L (24-44) % [place] % (Auto) 10 H (2-6) % Eos % (Auto) 0 L (2-4) % Baso % (Auto) 0 (0-1) % PT 19.1 H (9.5-12.0) sec INR 1.83 H (0.80-1.20) Sodium 137 L (140-148) mmol/L Potassium 2.9 L* (3.6-5.2) mmol/L Chloride 92 L (100-108) mmol/L Carbon Dioxide 27 (21-32) mmol/L Anion Gap 20.9 H (5.0-14.0) mmol/L BUN 30 H D (7-18) mg/dL Creatinine 1.7 H D (0.8-1.3) mg/dL Est Cr Clr Drug Dosing 43.01 mL/min Estimated GFR (MDRD) 41 L (>60) Glucose 149 H (74-106) mg/dL Lactic Acid (0.4-2.0) mmol/L Calcium 8.1 L (8.5-10.1) mg/dL Total Bilirubin 3.9 H D (0.2-1.0) mg/dL AST 126 H D (15-37) U/L ALT 32 (12-78) U/L Alkaline Phosphatase 194 H D (46-116) U/L Total Protein 5.6 L (6.4-8.2) g/dL Albumin 2.2 L (3.4-5.0) g/dL Globulin 3.4 (2.3-3.5) g/dL Albumin/Globulin Ratio 0.7 L (1.2-2.2) Amylase 72 (25-115) U/L Lipase 168 (73-393) U/L Blood Type Gel Antibody Screen Crossmatch 01/24/20 01/24/20 Range/Units 15:10 15:10 WBC (4.5-11.0) K/uL RBC (4.30-5.90) M/uL Hgb (12.0-15.0) g/dL Hct (40.0-54.0) % MCV (80-98) fL MCH (27-31) pg MCHC (32-36) % Plt Count (150-400) K/uL Neut % (Auto) (36-66) % Lymph % (Auto) (24-44) % [place] % (Auto) (2-6) % Eos % (Auto) (2-4) % Baso % (Auto) (0-1) % PT (9.5-12.0) sec INR (0.80-1.20) Sodium (140-148) mmol/L Potassium (3.6-5.2) mmol/L Chloride (100-108) mmol/L Carbon Dioxide (21-32) mmol/L Anion Gap (5.0-14.0) mmol/L BUN (7-18) mg/dL Creatinine (0.8-1.3) mg/dL Est Cr Clr Drug Dosing mL/min Estimated GFR (MDRD) (>60) Glucose (74-106) mg/dL Lactic Acid 12.7 H (0.4-2.0) mmol/L Calcium (8.5-10.1) mg/dL Total Bilirubin (0.2-1.0) mg/dL AST (15-37) U/L ALT (12-78) U/L Alkaline Phosphatase (46-116) U/L Total Protein (6.4-8.2) g/dL Albumin (3.4-5.0) g/dL Globulin (2.3-3.5) g/dL Albumin/Globulin Ratio (1.2-2.2) Amylase (25-115) U/L Lipase (73-393) U/L Blood Type O POSITIVE Gel Antibody Screen Negative Crossmatch See Detail Meds: Medications Discontinued Medications Generic Name Dose Route Start Last Admin Trade Name Freq PRN Reason Stop Dose Admin Hydromorphone HCl 0.5 mg 01/24/20 15:03 01/24/20 15:14 Dilaudid IVPUSH 01/24/20 15:04 0.5 mg ONETIME ONE Administration Sodium Chloride 1,000 mls @ 1,000 mls/hr 01/24/20 15:30 01/24/20 15:24 Normal Saline IV 1,000 mls/hr ASDIRECTED ALESSANDRA Administration Tranexamic Acid 1,000 mg/ 510 mls @ 83 mls/hr 01/24/20 16:26 Sodium Chloride IV 01/24/20 22:34 ONETIME ONE Octreotide Acetate 200 mcg 01/24/20 16:26 Sandostatin IVPUSH 01/24/20 16:27 ONETIME ONE Ondansetron HCl 4 mg 01/24/20 15:03 01/24/20 15:14 Zofran IVPUSH 01/24/20 15:04 4 mg ONETIME ONE Administration Pantoprazole Sodium 80 mg 01/24/20 16:30 Protonix Iv IVPUSH .BOLUS ALESSANDRA - Re-Assessments/Exams Free Text/Narrative Re-Assessment/Exam: 01/24/20 15:15 An IV was started and patient was bolused with 1 L normal saline, CBC, CMP, amylase, lipase, lactic acid were all obtained. An EKG done at the clinic showed sinus tachycardia. 4 mg of IV Zofran as well as 0.5 mg of IV Dilaudid were given, and an INR was drawn as well. Anticipate a CT of the abdomen. Hemoglobin was 9.3, last level 2-1/2 years ago here in the emergency room was normal at over 13. Lactic acid was 12.7, bilirubin 3.7, potassium 2.9. Alkaline phosphatase was also elevated. These laboratory levels with the CT findings indicated advanced cirrhosis and likely esophageal varices as a source of hemorrhage. 01/24/20 16:30 CT of the abdomen showed cirrhosis and abdominal ascites, thickened esophageal wall very suspicious for esophageal varices. 2 units of red blood cells were typed and crossed and 1 transfusion initiated. Patient was also given 1 g of TXA IV, 200 mcg of octreotide, and 80 mg of IV Protonix. Brief phone consultation with our surgical department here recommended transfer, Celso Flores of [facility] in [place] kindly agreed to accept the patient. He will be transferred urgently by air care for active esophageal varices resulting in hypotension and blood loss anemia. Departure - Departure Time of Disposition: 17:02 Disposition: DC/Tfer to Other 70 Clinical Impression: Acute blood loss anemia Esophageal varices with bleeding Qualifiers: Esophageal varices type: secondary Qualified Code(s): I85.11 - Secondary esophageal varices with bleeding - Discharge Information Referrals: Matty Rivas MD [Primary Care Provider] - Forms: ED Department Discharge Care Plan Goals: Patient is to be urgently transferred to [facility] via air care for blood loss anemia due to bleeding esophageal varices. Sepsis Event Note - Evaluation Sepsis Screening Result: No Definite Risk - Focused Exam Vital Signs: Vital Signs Temp Temp Pulse Resp BP Pulse Ox 01/24/20 16:45 98.4 F 108 H 16 100/66 01/24/20 16:31 97.3 F 105 H 16 104/65 97 01/24/20 16:15 108 H 15 87/47 L 92 L 01/24/20 16:06 114 H 19 97/57 L 94 L 01/24/20 15:52 109 H 18 100/58 L 97 01/24/20 15:36 109 H 15 82/41 L 94 L 01/24/20 15:32 112 H 15 74/49 L 92 L 01/24/20 15:12 117 H 94/58 L 01/24/20 14:59 125 H 21 H 117/73 99 01/24/20 14:55 98.3 F 130 H 18 81/59 L 92 L 01/24/20 14:53 98.3 F 130 H 18 81/59 L 92 L Date Exam was Performed: 01/24/20 Time Exam was Performed: 17:08 - My Orders Last 24 Hours: My Active Orders 01/24/20 15:03 EKG 12 Lead [EK] Routine 01/24/20 15:04 EKG Documentation Completion [RC] ASDIRECTED 01/24/20 15:10 RED BLOOD CELLS LP [BBK] Stat TYPE AND SCREEN [BBK] Stat 01/24/20 15:56 Transfuse Red Blood Cells [COMM] Stat - Assessment/Plan Last 24 Hours: My Active Orders 01/24/20 15:03 EKG 12 Lead [EK] Routine 01/24/20 15:04 EKG Documentation Completion [RC] ASDIRECTED 01/24/20 15:10 RED BLOOD CELLS LP [BBK] Stat TYPE AND SCREEN [BBK] Stat 01/24/20 15:56 Transfuse Red Blood Cells [COMM] Stat
[2020-01-24] MEDS ORDERED: Sodium Chloride 0.9% 1,000 ML IV SCH (15:30)
--- NOTE | 2020-01-24 16:10 | CT ---
Abdomen Pelvis wo Cont CLINICAL HISTORY: Abdominal pain, bloating, hematemesis COMPARISON: 06/09/2019. TECHNIQUE: Axial tomographic images are obtained from the dome of the diaphragm to the pubic symphysis without IV contrast enhancement. No oral contrast was used. Auto dosage reduction and iterative reconstruction techniques employed. FINDINGS: The lung bases are clear. The liver is diffusely heterogeneous and hypodense. It is also small. The this is consistent with hepatic cirrhosis. The gallbladder shows no obvious stones. There may be some mild wall thickening. This is exaggerated by surrounding ascitic fluid which is seen diffusely throughout the abdomen and pelvis. There is a small hiatal hernia. There appears to be some circumferential thickening of the distal esophagus. The spleen has a normal size and shape. The pancreas appears free of mass or inflammatory change. The adrenal glands appear normal bilaterally. The kidneys show no stones or hydronephrosis. The aorta shows moderate atheromatous calcification without aneurysm. There is no suspicious retroperitoneal adenopathy. IMPRESSION: Significant abdominal pelvic ascites Severe cirrhotic changes throughout the liver. There are large areas of abnormal heterogeneous density. Underlying hepatocellular carcinoma cannot be excluded. If clinically relevant further imaging should be considered . Hiatal hernia with some thickening of the distal esophagus Limited study due to lack of IV contrast
[2020-01-24] MEDS ORDERED: Tranexamic Acid 1,000 MG in Sodium Chloride 0.9% 500 ML IV ONE (16:26)
[2020-01-24] MEDS ORDERED: Octreotide 100 MCG/ML SDV IVPUSH ONE (16:26)
[2020-01-24] MEDS ORDERED: Pantoprazole 40 MG Vial IVPUSH SCH (16:30)
[2020-01-24 16:47] VITALS: BP 100/66; PULSE 108
== END 2020-01-24 17:02 | disposition other institution (70) ==
LOC: JP.ED 14:43
DX: I85.11 Secondary esophageal varices with bleeding (principal); D62 Acute posthemorrhagic anemia; I10 Essential (primary) hypertension; Z98.890 Other specified postprocedural states; Z88.8 Allergy status to other drugs, medicaments and biological substances; Z98.1 Arthrodesis status
CPT/HCPCS: 36415; 36430; 74176; 80053; 82150; 83605; 83690; 85025; 85610; 86850; 86900; 86901; 86920; 86922; 96361; 96374; 96375; 99285; J1170; J2405; J7030; P9016

== ENCOUNTER 2020-01-29 20:19 | Emergency (ER) | payer BC ==
[2020-01-29 20:39] VITALS: BP 115/51; PULSE 95
--- NOTE | 2020-01-29 21:01 | EDM.PDOC ---
ED HPI GENERAL MEDICAL PROBLEM - General Chief Complaint: Abdominal Pain Stated Complaint: DISCHARGED FROM [facility] Time Seen by Provider: 01/29/20 20:45 Source of Information: Reports: Patient, Old Records, RN History Limitations: Reports: No Limitations - History of Present Illness INITIAL COMMENTS - FREE TEXT/NARRATIVE: 59 yo male with recent transfer to [place] for liver disease from ETOH use was discharged yesterday after stabilization that included paracentesis. He now has some ankle swelling and swelling of penis. Was told by nurse direct to come to the ER. Has an appt with Dr. Rivas on . No other concerns at this time. Onset: Gradual Onset Date: 01/29/20 Duration: Hour(s):, Getting Worse Location: Reports: Lower Extremity, Left, Lower Extremity, Right Quality: Reports: Other (no pain) Severity: Mild Improves with: Reports: None Worsens with: Reports: Other (time) Context: Reports: Other (see HPI) Associated Symptoms: Denies: Cough, Diaphoresis, Fever/Chills, Nausea/Vomiting, Shortness of Breath Treatments BIOLOGICS SPECIALIST: Reports: Other (see below) (furosemide and spironolactone) Bilateral Ankle Pain Score (Numeric/FACES): 7 - Related Data Allergies Allergy/AdvReac Type Severity Reaction Status Date / Time nickel Allergy Rash Verified 01/29/20 20:41 Home Meds: Home Meds Gabapentin 600 mg PO QID 04/25/15 [History] Naproxen Sodium [Aleve] 220 mg PO ASDIRECTED PRN 04/25/15 [History] Triamterene/Hydrochlorothiazid [Triamterene-HCTZ 37.5-25 MG] 1 tab PO DAILY [History] Past Medical History HEENT History: Reports: Allergic Rhinitis, Impaired Vision, Other (See Below) Other HEENT History: tinitis Cardiovascular History: Reports: Hypertension Gastrointestinal History: Reports: Chronic Diarrhea, Cirrhosis, Colon Polyp, GERD Musculoskeletal History: Reports: Back Pain, Chronic, Osteoarthritis, Other ( See Below) Other Musculoskeletal History: s/p ALIF 07/13/17 Neurological History: Reports: Neuropathy, Peripheral Psychiatric History: Reports: Addiction Dermatologic History: Reports: None - Infectious Disease History Infectious Disease History: Reports: Chicken Pox - Past Surgical History Head Surgeries/Procedures: Reports: None HEENT Surgical History: Reports: Tonsillectomy, Other (See Below) Other HEENT Surgeries/Procedures: esophageal varices Cardiovascular Surgical History: Reports: None GI Surgical History: Reports: Colonoscopy Neurological Surgical History: Reports: Spinal Fusion Musculoskeletal Surgical History: Reports: Carpal Tunnel, Other (See Below) Other Musculoskeletal Surgeries/Procedures:: left miniscus repair x2 Dermatological Surgical History: Reports: None Social & Family History - Family History Family Medical History: Noncontributory - Tobacco Use Smoking Status *Q: Current Every Day Smoker Years of Tobacco use: 30 Packs/Tins Daily: 0.5 - Caffeine Use Caffeine Use: Reports: Coffee Caffeine Use Comment: minimal caffeine use - Alcohol Use Date of Last Drink: 01/22/20 - Recreational Drug Use Recreational Drug Use: No ED ROS GENERAL - Review of Systems Review Of Systems: See Below Constitutional: Reports: No Symptoms HEENT: Reports: No Symptoms Respiratory: Reports: No Symptoms Cardiovascular: Reports: No Symptoms GI/Abdominal: Reports: No Symptoms : Reports: Other (penile edema, no difficulty with urination.) Musculoskeletal: Reports: No Symptoms, Other (ankle swelling) Skin: Reports: No Symptoms Neurological: Reports: No Symptoms Psychiatric: Reports: No Symptoms ED EXAM, GI/ABD - Physical Exam Exam: See Below Exam Limited By: Other (No evidence of recent ETOH use.) General Appearance: Alert, WD/WN, No Apparent Distress Eyes: Bilateral: Normal Appearance Ears: Normal External Exam, Normal Canal, Hearing Grossly Normal Nose: Normal Inspection, No Blood Throat/Mouth: Normal Inspection, Normal Lips, Normal Oropharynx, Normal Voice Head: Atraumatic, Normocephalic Neck: Normal Inspection Respiratory/Chest: No Respiratory Distress, Lungs Clear, Normal Breath Sounds, No Accessory Muscle Use Cardiovascular: Regular Rate, Rhythm, Other (Trace pitting edema to both LE's below the knees.) GI/Abdominal Exam: Normal Bowel Sounds, Soft, Non-Tender, Other (some ascites, not tense.) Extremities: Normal Inspection, Normal Range of Motion, Non-Tender, Pedal Edema (trace bilaterally). No: No Pedal Edema Neurological: Alert, Oriented, CN II-XII Intact, Normal Cognition, No Motor/ Sensory Deficits Psychiatric: Normal Affect, Normal Mood Skin Exam: Warm, Dry, Intact, Normal Color, No Rash Course - Vital Signs Last Recorded V/S: Last Vital Signs Temp 37.0 C 03/02/20 20:52 Pulse 95 01/29/20 20:52 Resp 16 01/29/20 20:52 BP 115/51 L 01/29/20 20:52 Pulse Ox 99 01/29/20 20:52 Departure - Departure Time of Disposition: 21:02 Disposition: Home, Self-Care 01 Condition: Good Clinical Impression: Dependent edema Cirrhosis of liver Qualifiers: Hepatic cirrhosis type: alcoholic cirrhosis Ascites presence: with ascites Qualified Code(s): K70.31 - Alcoholic cirrhosis of liver with ascites - Discharge Information *PRESCRIPTION DRUG MONITORING PROGRAM REVIEWED*: Not Applicable *COPY OF PRESCRIPTION DRUG MONITORING REPORT IN PATIENT PETE: Not Applicable Instructions: Edema, [id number] Referrals: Matty Rivas MD [Primary Care Provider] - Additional Instructions: Continue present meds/cares. Keep appt for follow up with Dr. Rivas. Sepsis Event Note - Evaluation Sepsis Screening Result: No Definite Risk - Focused Exam Vital Signs: Vital Signs Temp Pulse Resp BP Pulse Ox 01/29/20 20:52 37.0 C 95 16 115/51 L 99 01/29/20 20:37 37.0 C 95 16 115/51 L 99 Date Exam was Performed: 01/29/20 Time Exam was Performed: 20:56
== END 2020-01-29 21:09 | disposition home or self-care (01) ==
LOC: JP.ED 20:19
DX: K70.31 Alcoholic cirrhosis of liver with ascites (principal); R60.0 Localized edema; F17.210 Nicotine dependence, cigarettes, uncomplicated; I10 Essential (primary) hypertension; G56.00 Carpal tunnel syndrome, unspecified upper limb; G62.9 Polyneuropathy, unspecified; Z79.899 Other long term (current) drug therapy
CPT/HCPCS: 99283

== ENCOUNTER 2021-10-07 10:38 | Emergency (ER) | payer OTHER, SELFPAY ==
[2021-10-07 12:33] LABS: CORONAVIRUS COVID-19 NAA NEGATIVE (NEGATIVE)
[2021-10-07] MEDS ORDERED: Albuterol/Ipratropium 3.0-0.5 MG/3 ML Neb Soln NEB ONE (12:47)
--- NOTE | 2021-10-07 12:49 | EDM.PDOC ---
ED HPI GENERAL MEDICAL PROBLEM - General Chief Complaint: Respiratory Problem Stated Complaint: SYMTOMS OD COVID Time Seen by Provider: 10/07/21 12:43 Source of Information: Reports: Patient, RN Notes Reviewed History Limitations: Reports: No Limitations - History of Present Illness INITIAL COMMENTS - FREE TEXT/NARRATIVE: 61-year-old gentleman presents emergency department day complaint of shortness of breath, he started having symptoms about 3 days prior fevers short of breath little bit of a cough no chest pain no nausea vomiting no diarrhea. He was concerned about Covid - Related Data Allergies Allergy/AdvReac Type Severity Reaction Status Date / Time nickel Allergy Intermediate Rash Verified 10/07/21 11:27 Home Meds: Home Meds Pantoprazole Sodium [Protonix] 40 mg PO DAILY 01/29/20 [History] Past Medical History HEENT History: Reports: Allergic Rhinitis, Impaired Vision, Other (See Below) Other HEENT History: tinitis Cardiovascular History: Reports: Hypertension Gastrointestinal History: Reports: Chronic Diarrhea, Cirrhosis, Colon Polyp, GERD Musculoskeletal History: Reports: Back Pain, Chronic, Osteoarthritis, Other (See Below) Other Musculoskeletal History: s/p ALIF 07/13/17 Neurological History: Reports: Neuropathy, Peripheral Psychiatric History: Reports: Addiction Hematologic History: Reports: Blood Transfusion(s) Dermatologic History: Reports: None - Infectious Disease History Infectious Disease History: Reports: Chicken Pox - Past Surgical History Head Surgeries/Procedures: Reports: None HEENT Surgical History: Reports: Tonsillectomy, Other (See Below) Other HEENT Surgeries/Procedures: esophageal varices Cardiovascular Surgical History: Reports: None GI Surgical History: Reports: Colonoscopy Neurological Surgical History: Reports: Spinal Fusion Musculoskeletal Surgical History: Reports: Carpal Tunnel, Other (See Below) Other Musculoskeletal Surgeries/Procedures:: left miniscus repair x2 Dermatological Surgical History: Reports: None Social & Family History - Family History Family Medical History: No Pertinent Family History - Tobacco Use Tobacco Use Status *Q: Current Every Day Tobacco User Years of Tobacco use: 30 Packs/Tins Daily: 1 - Caffeine Use Caffeine Use: Reports: Coffee Caffeine Use Comment: minimal caffeine use - Recreational Drug Use Recreational Drug Use: No ED ROS GENERAL - Review of Systems Review Of Systems: See Below Constitutional: Reports: Fever, Weakness, Fatigue HEENT: Reports: No Symptoms Respiratory: Reports: Shortness of Breath, Cough. Denies: Wheezing, Sputum Cardiovascular: Reports: Dyspnea on Exertion GI/Abdominal: Reports: No Symptoms ED EXAM, GENERAL - Physical Exam Exam: See Below Exam Limited By: No Limitations General Appearance: Alert, WD/WN, No Apparent Distress Respiratory/Chest: No Respiratory Distress, Lungs Clear, No Accessory Muscle Use, Chest Non-Tender, Decreased Breath Sounds Cardiovascular: Regular Rate, Rhythm, No Murmur GI/Abdominal: Soft, Non-Tender #1 Interpretation EKG Date: 10/07/21 Time: 13:04 Rhythm: NSR [place]: Normal P-Wave: Present QRS: Normal ST-T: Depressed QT: Normal Comparison: Change From Previous EKG Course - Vital Signs Last Recorded V/S: Last Vital Signs Temp 98.2 F 10/07/21 11:37 Pulse 69 10/07/21 14:52 Resp 15 10/07/21 13:48 BP 110/75 10/07/21 14:52 Pulse Ox 91 L 10/07/21 14:52 - Orders/Labs/Meds Orders: Active Orders 24 hr Category Date Time Status Cardiac Monitoring [RC] STAT Care 10/07/21 15:01 Ordered Communication Order [RC] Per Unit Routine Care 10/07/21 15:01 Ordered Communication Order [RC] Per Unit Routine Care 10/07/21 15:01 Ordered Oxygen Therapy [RC] ASDIRECTED Care 10/07/21 15:01 Ordered RT Aerosol Therapy [RC] ASDIRECTED Care 10/07/21 12:47 Active Heparin Sodium/D5W [Heparin 25,000 Units in D5W 500 ML] Med 10/07/21 15:15 Ordered 25,000 units in 500 ml IV TITRATE Isolation [COMM] Stat Oth 10/07/21 11:43 Ordered EKG 12 Lead [EK] Urgent Ther 10/07/21 12:46 Ordered Medication Orders Heparin Sodium/Dextrose (Heparin 25,000 Units In D5w 500 Ml) 25,000 units in 500 mls @ 17.418 mls/hr IV TITRATE ALESSANDRA; Protocol Labs: Laboratory Tests 10/07/21 10/07/21 10/07/21 Range/Units 11:58 12:55 12:55 WBC 16.5 H (4.5-11.0) K/uL RBC 4.37 (4.30-5.90) M/uL Hgb 11.1 L (12.0-15.0) g/dL Hct 34.8 L (40.0-54.0) % MCV 80 (80-98) fL MCH 25 L (27-31) pg MCHC 32 (32-36) % Plt Count 123 L (150-400) K/uL Neut % (Auto) 71.6 H (36-66) % Lymph % (Auto) 14.5 L (24-44) % [place] % (Auto) 13.7 H (2-6) % Eos % (Auto) 0.0 L (2-4) % Baso % (Auto) 0.2 (0-1) % Sodium 136 L (140-148) mmol/L Potassium 5.2 (3.6-5.2) mmol/L Chloride 99 L (100-108) mmol/L Carbon Dioxide 27 (21-32) mmol/L Anion Gap 15.2 H (5.0-14.0) mmol/L BUN 39 H (7-18) mg/dL Creatinine 1.6 H (0.8-1.3) mg/dL Est Cr Clr Drug Dosing 49.77 mL/min Estimated GFR (MDRD) 44 L (>60) Glucose 116 H (74-106) mg/dL Calcium 8.4 L (8.5-10.1) mg/dL Total Bilirubin 0.7 D (0.2-1.0) mg/dL AST 207 H (15-37) U/L ALT 66 D (12-78) U/L Alkaline Phosphatase 86 (46-116) U/L Troponin I 19.359 H* (0.000-0.056) ng/mL Total Protein 6.9 (6.4-8.2) g/dL Albumin 3.5 (3.4-5.0) g/dL Globulin 3.4 (2.3-3.5) g/dL Albumin/Globulin Ratio 1.0 L (1.2-2.2) Influenza Type A RNA Negative (NEGATIVE) RSV RNA (INAAT) Negative (NEGATIVE) Influenza Type B RNA Negative (NEGATIVE) SARS-CoV-2 RNA (JAMES) Negative (NEGATIVE) Meds: Medications Generic Name Dose Route Start Last Admin Trade Name Freq PRN Reason Stop Dose Admin Heparin Sodium/Dextrose 25,000 units in 500 mls @ 17.418 mls/hr 10/07/21 15:15 Heparin 25,000 Units In D5w 500 Ml IV TITRATE ALESSANDRA Protocol 12 UNITS/KG/HR Discontinued Medications Generic Name Dose Route Start Last Admin Trade Name Claudia PRN Reason Stop Dose Admin Albuterol/Ipratropium 3 ml 10/07/21 12:47 10/07/21 12:54 Albuterol/Ipratropium 3.0-0.5 Mg/3 Ml Neb Soln NEB 10/07/21 12:48 3 ml ONETIME ONE Administration Aspirin 325 mg 10/07/21 14:50 Aspirin 325 Mg Tab.Ec PO 10/07/21 14:51 ONETIME ONE Heparin Sodium (Porcine) 4,000 units 10/07/21 15:01 Heparin Sodium 5,000 Units/Ml Vial IVPUSH 10/07/21 15:02 BOLUS ONE Ticagrelor 180 mg 10/07/21 15:01 Ticagrelor 90 Mg Tab PO 10/07/21 15:02 ONETIME ONE Departure - Departure Time of Disposition: 15:11 Disposition: DC/Tfer to Acute Hospital 02 Condition: Fair Clinical Impression: ST elevation myocardial infarction (STEMI) Qualifiers: Involved coronary artery: unspecified coronary artery Qualified Code(s): I21.3 - ST elevation (STEMI) myocardial infarction of unspecified site - Discharge Information Referrals: Matty Rivas MD [Primary Care Provider] - Forms: ED Department Discharge Sepsis Event Note (ED) - Evaluation Sepsis Screening Result: No Definite Risk - Focused Exam Vital Signs: Vital Signs Temp Pulse Resp BP Pulse Ox 10/07/21 14:52 69 110/75 91 L 10/07/21 14:18 69 115/81 91 L 10/07/21 13:48 64 15 118/76 96 10/07/21 12:34 69 108/75 94 L 10/07/21 11:52 68 121/78 97 10/07/21 11:37 98.2 F 62 18 111/63 95 10/07/21 11:25 98.2 F 62 22 H 111/63 96 - My Orders Last 24 Hours: My Active Orders 10/07/21 11:43 Isolation [COMM] Stat 10/07/21 12:46 EKG 12 Lead [EK] Urgent 10/07/21 12:47 RT Aerosol Therapy [RC] ASDIRECTED 11/09/21 15:01 Cardiac Monitoring [RC] STAT Communication Order [RC] Per Unit Routine Communication Order [RC] Per Unit Routine Oxygen Therapy [RC] ASDIRECTED 10/07/21 15:15 Heparin Sodium/D5W [Heparin 25,000 Units in D5W 500 ML] 25,000 units in 500 ml IV TITRATE - Assessment/Plan Last 24 Hours: My Active Orders 10/07/21 11:43 Isolation [COMM] Stat 10/07/21 12:46 EKG 12 Lead [EK] Urgent 10/07/21 12:47 RT Aerosol Therapy [RC] ASDIRECTED 10/07/21 15:01 Cardiac Monitoring [RC] STAT Communication Order [RC] Per Unit Routine Communication Order [RC] Per Unit Routine Oxygen Therapy [RC] ASDIRECTED 10/07/21 15:15 Heparin Sodium/D5W [Heparin 25,000 Units in D5W 500 ML] 25,000 units in 500 ml IV TITRATE Plan: Assessment Acuity = acute Site and laterality = ST elevation myocardial infarction Etiology = underlying coronary artery disease probable Manifestations = dyspnea Location of injury = Home Lab values = WBC elevated 16.5 consistent leukocytosis, creatinine elevated 1.6 consistent acute renal failure stage T3a calcium low at 8.4 consistent hypocalcemia AST elevated 207 consistent elevated liver enzymes troponin markedly elevated 19.359 consistent with myocardial infarction Covid was negative RSV negative influenza A and B negative chest x-ray reveals right pleural effusion unknown significance Plan Initially called and discussed case with Dr. [place] house servant [facility] at 1445 requested EKGs and then reviewed the case, call back accepted the patient at 1500 wanted to err on the side of caution and called as a STEMI as it was very suspicious with elevated troponin. This gentleman has never had chest pain remained chest pain-free in the emergency department did receive aspirin, Brilinta heparin bolus with heparin drip in route, will be transported via air care This note was dictated using Degreed voice recognition software please call with any questions on syntax or grammar.
--- NOTE | 2021-10-07 14:27 | CR ---
CHEST: 2 view CLINICAL HISTORY:SOB COMPARISON:None FINDINGS: Heart size and pulmonary vascular normal. There are atherosclerotic changes in the aorta.. There is a small right pleural effusion. No infiltrates are seen. Impression: Small right pleural effusion of unknown etiology
[2021-10-07] MEDS ORDERED: Aspirin 325 MG Tab.EC PO ONE (14:50)
[2021-10-07] MEDS ORDERED: Ticagrelor 90 MG Tab PO ONE (15:01)
[2021-10-07] MEDS ORDERED: Heparin Sodium 5,000 Units/ML Vial IVPUSH ONE (15:01)
[2021-10-07] MEDS ORDERED: Heparin Sodium/D5W 25,000 UNITS/500 ML BAG IV SCH (15:15)
[2021-10-07 15:25] VITALS: BP 105/68; PULSE 66
== END 2021-10-07 15:40 ==
LOC: JP.ED 10:38
DX: I21.3 ST elevation (STEMI) myocardial infarction of unspecified site (principal); I10 Essential (primary) hypertension; K21.9 Gastro-esophageal reflux disease without esophagitis; Z72.0 Tobacco use; Z91.048 Other nonmedicinal substance allergy status; Z79.899 Other long term (current) drug therapy; Z20.822 Contact with and (suspected) exposure to COVID-19
CPT/HCPCS: 0241U; 36415; 71046; 80053; 84484; 85025; 93005; 94640; 96374; 99285; A9270; J1644; J7620-GY

== ENCOUNTER 2021-10-13 23:05 | Emergency (ER) | payer OTHER ==
[2021-10-13] MEDS ORDERED: Ondansetron 4 MG/2 ML SDV IVPUSH ONE (23:21)
[2021-10-13] MEDS ORDERED: Sodium Chloride 0.9% 10 ML Syringe FLUSH PRN ×2 (23:21→23:22)
[2021-10-13] MEDS ORDERED: Pantoprazole 40 MG Vial IVPUSH ONE (23:22)
[2021-10-13] MEDS ORDERED: Ondansetron 4 MG/2 ML SDV ONE (23:23)
[2021-10-13] MEDS ORDERED: Octreotide 100 MCG/ML SDV IVPUSH ONE (23:24)
[2021-10-13] MEDS ORDERED: Sodium Chloride 0.9% 1,000 ML IV SCH (23:30)
[2021-10-13] MEDS ORDERED: Sodium Chloride 0.9% 1,000 ML IV ONE (23:35)
[2021-10-13] MEDS: Octreotide 500 MCG in Sodium Chloride 0.9% 497.5 ML IV SCH (23:49)
--- NOTE | 2021-10-14 00:02 | EDM.PDOC ---
<OfficerRico - Last Filed: 10/13/21 23:59> ED HPI GENERAL MEDICAL PROBLEM - General Chief Complaint: Gastrointestinal Problem Stated Complaint: BLOODY STOOL Time Seen by Provider: 10/13/21 23:21 Source of Information: Reports: Patient, Family, Old Records, RN Notes Reviewed History Limitations: Reports: No Limitations - History of Present Illness INITIAL COMMENTS - FREE TEXT/NARRATIVE: 61-year-old gentleman presents emergency department today with maroon-colored stools and bright red emesis. He was recently in the emergency department on 07 October at which time felt to have an ST myocardial infarction transferred via air care to [facility] underwent [employer] however no stenting was done at that time. He was discharged on the combination aspirin and Plavix. He does have a known history of esophageal varices as well as liver ascites unfortunately over the last 12 hours he has developed maroon-colored stools very lightheaded and weak and then had a bout of bright red emesis in the emergency department. Abdomen Pain Score (Numeric/FACES): 6 - Related Data Allergies Allergy/AdvReac Type Severity Reaction Status Date / Time nickel Allergy Intermediate Rash Verified 10/07/21 11:27 Home Meds: Home Meds Aspirin [Halfprin] 81 mg PO DAILY 10/13/21 [History] Clopidogrel [Plavix] 75 mg PO DAILY 10/13/21 [History] Metoprolol Succinate [Toprol XL] 12.5 mg PO DAILY 10/13/21 [History] Pantoprazole [ProTONIX] 40 mg PO DAILY 10/13/21 [History] atorvaSTATin [Lipitor] 40 mg PO DAILY 10/13/21 [History] Past Medical History HEENT History: Reports: Allergic Rhinitis, Impaired Vision, Other (See Below) Other HEENT History: tinitis Cardiovascular History: Reports: Hypertension Gastrointestinal History: Reports: Chronic Diarrhea, Cirrhosis, Colon Polyp, GERD Musculoskeletal History: Reports: Back Pain, Chronic, Osteoarthritis, Other (See Below) Other Musculoskeletal History: s/p ALIF 07/13/17 Neurological History: Reports: Neuropathy, Peripheral Psychiatric History: Reports: Addiction Hematologic History: Reports: Blood Transfusion(s) Dermatologic History: Reports: None - Infectious Disease History Infectious Disease History: Reports: Chicken Pox - Past Surgical History Head Surgeries/Procedures: Reports: None HEENT Surgical History: Reports: Tonsillectomy, Other (See Below) Other HEENT Surgeries/Procedures: esophageal varices Cardiovascular Surgical History: Reports: None GI Surgical History: Reports: Colonoscopy Neurological Surgical History: Reports: Spinal Fusion Musculoskeletal Surgical History: Reports: Carpal Tunnel, Other (See Below) Other Musculoskeletal Surgeries/Procedures:: left miniscus repair x2 Dermatological Surgical History: Reports: None Social & Family History - Family History Family Medical History: No Pertinent Family History - Tobacco Use Tobacco Use Status *Q: Former Tobacco User Used Tobacco, but Quit: Yes Month/Year Tobacco Last Used: this week - Caffeine Use Caffeine Use: Reports: Coffee Caffeine Use Comment: minimal caffeine use - Recreational Drug Use Recreational Drug Use: No ED ROS GENERAL - Review of Systems Review Of Systems: See Below Constitutional: Reports: No Symptoms HEENT: Reports: No Symptoms Respiratory: Reports: No Symptoms Cardiovascular: Reports: No Symptoms GI/Abdominal: Reports: Abdominal Pain, Bloody Stool, Hematemesis, Nausea, Vomiting ED EXAM, GI/ABD - Physical Exam Exam: See Below Exam Limited By: No Limitations General Appearance: Alert, Mild Distress Respiratory/Chest: No Respiratory Distress, Lungs Clear, Normal Breath Sounds, No Accessory Muscle Use, Chest Non-Tender Cardiovascular: Regular Rate, Rhythm, No Murmur GI/Abdominal Exam: Soft, Non-Tender Departure - Departure Disposition: DC/Tfer to Acute Hospital 02 Clinical Impression: Upper GI bleed Anemia Qualifiers: Anemia type: iron deficiency Iron deficiency anemia type: chronic blood loss Qualified Code(s): D50.0 - Iron deficiency anemia secondary to blood loss (chronic) Clinical Impression: (Ruled Out): GI bleed - Discharge Information Referrals: Matty Rivas MD [Primary Care Provider] - Forms: ED Department Discharge Sepsis Event Note (ED) - Evaluation Sepsis Screening Result: No Definite Risk <[place] - Last Filed: 10/14/21 16:38> Course - Vital Signs Last Recorded V/S: Last Vital Signs Temp 36.7 C 10/14/21 15:35 Pulse 57 L 10/14/21 16:29 Resp 12 10/14/21 16:29 BP 92/50 L 10/14/21 16:29 Pulse Ox 98 10/14/21 16:29 - Orders/Labs/Meds Orders: Active Orders 24 hr Category Date Time Status Peripheral IV Care [RC] . DIRECTED Care 10/13/21 23:21 Active Peripheral IV Care [RC] . DIRECTED Care 10/13/21 23:23 Active Nothing per Oral Now Diet [DIET] Diet 10/14/21 Breakfast Active Abdomen 1V Upright [CR] Stat Exams 10/14/21 00:50 Taken RED BLOOD CELLS LP [BBK] Stat Lab 10/13/21 23:40 Results TYPE AND SCREEN [BBK] Routine Lab 10/13/21 23:40 Results Octreotide [SandoSTATIN] 500 mcg Med 10/13/21 23:30 Active Sodium Chloride 0.9% [Normal Saline] 497.5 ml IV Q10H Sodium Chloride 0.9% [Saline Flush] Med 10/13/21 23:21 Active 10 ml FLUSH ASDIRECTED PRN Sodium Chloride 0.9% [Saline Flush] Med 10/13/21 23:22 Active 10 ml FLUSH ASDIRECTED PRN Nasogastric Orogastric Tube Insertion [OM.PC] Routine Oth 10/14/21 00:50 Ordered Peripheral IV Insertion Adult [OM.PC] Urgent Oth 10/13/21 23:21 Ordered Peripheral IV Insertion Adult [OM.PC] Urgent Oth 10/13/21 23:22 Ordered Medication Orders Octreotide Acetate 500 mcg/ (Sodium Chloride) 500 mls @ 50 mls/hr IV Q10H [facility] Last Admin: 10/14/21 09:55 Dose: 50 mcg/hr, 50 mls/hr Documented by: Infusion: 10/14/21 09:49 Dose: 50 mcg/hr, 50 mls/hr Documented by: Admin: 10/13/21 23:49 Dose: 50 mcg/hr, 50 mls/hr Documented by: [place] Sodium Chloride (Sodium Chloride 0.9% 10 Ml Syringe) 10 ml FLUSH ASDIRECTED PRN PRN Reason: Keep Vein Open Last Admin: 10/13/21 23:25 Dose: 10 ml Documented by: [place] Sodium Chloride (Sodium Chloride 0.9% 10 Ml Syringe) 10 ml FLUSH ASDIRECTED PRN PRN Reason: Keep Vein Open Last Admin: 10/13/21 23:47 Dose: 10 ml Documented by: [place] Labs: Laboratory Tests 10/13/21 10/13/21 10/13/21 Range/Units 23:25 23:25 23:35 WBC 12.8 H (4.5-11.0) K/uL RBC 2.91 L (4.30-5.90) M/uL Hgb 7.4 L D (12.0-15.0) g/dL Hct 23.7 L (40.0-54.0) % MCV 81 (80-98) fL MCH 25 L (27-31) pg MCHC 31 L (32-36) % Plt Count 158 (150-400) K/uL Neut % (Auto) 71.2 H (36-66) % Lymph % (Auto) 13.2 L (24-44) % [place] % (Auto) 14.7 H (2-6) % Eos % (Auto) 0.7 L (2-4) % Baso % (Auto) 0.2 (0-1) % PT 12.9 H (9.2-10.6) sec INR 1.3 Sodium 132 L (140-148) mmol/L Potassium 4.1 (3.6-5.2) mmol/L Chloride 97 L (100-108) mmol/L Carbon Dioxide 25 (21-32) mmol/L Anion Gap 14.1 H (5.0-14.0) mmol/L BUN 37 H (7-18) mg/dL Creatinine 1.6 H (0.8-1.3) mg/dL Est Cr Clr Drug Dosing 49.77 mL/min Estimated GFR (MDRD) 44 L (>60) Glucose 142 H (74-106) mg/dL Calcium 7.8 L (8.5-10.1) mg/dL Total Bilirubin 0.7 (0.2-1.0) mg/dL AST 30 D (15-37) U/L ALT 18 (12-78) U/L Alkaline Phosphatase 80 (46-116) U/L Total Protein 5.6 L (6.4-8.2) g/dL Albumin 2.6 L (3.4-5.0) g/dL Globulin 3.0 (2.3-3.5) g/dL Albumin/Globulin Ratio 0.9 L (1.2-2.2) Blood Type Gel Antibody Screen Crossmatch 10/13/21 10/14/21 10/14/21 Range/Units 23:40 15:28 15:28 WBC 12.1 H (4.5-11.0) K/uL RBC 3.33 L (4.30-5.90) M/uL Hgb 8.9 L (12.0-15.0) g/dL Hct 27.1 L (40.0-54.0) % MCV 81 (80-98) fL MCH 27 (27-31) pg MCHC 33 (32-36) % Plt Count 146 L (150-400) K/uL Neut % (Auto) 69.9 H (36-66) % Lymph % (Auto) 15.2 L (24-44) % [place] % (Auto) 13.9 H (2-6) % Eos % (Auto) 0.8 L (2-4) % Baso % (Auto) 0.2 (0-1) % PT (9.2-10.6) sec INR Sodium 135 L (140-148) mmol/L Potassium 4.8 (3.6-5.2) mmol/L Chloride 101 (100-108) mmol/L Carbon Dioxide 25 (21-32) mmol/L Anion Gap 13.8 (5.0-14.0) mmol/L BUN 35 H (7-18) mg/dL Creatinine 1.5 H (0.8-1.3) mg/dL Est Cr Clr Drug Dosing 53.09 mL/min Estimated GFR (MDRD) 48 L (>60) Glucose 104 (74-106) mg/dL Calcium 7.5 L (8.5-10.1) mg/dL Total Bilirubin 1.0 (0.2-1.0) mg/dL AST 31 (15-37) U/L ALT 23 (12-78) U/L Alkaline Phosphatase 75 (46-116) U/L Total Protein 5.8 L (6.4-8.2) g/dL Albumin 2.7 L (3.4-5.0) g/dL Globulin 3.1 (2.3-3.5) g/dL Albumin/Globulin Ratio 0.9 L (1.2-2.2) Blood Type O POSITIVE Gel Antibody Screen Negative Crossmatch See Detail Meds: Medications Generic Name Dose Route Start Last Admin Trade Name Freq PRN Reason Stop Dose Admin Octreotide Acetate 500 mcg/ 500 mls @ 50 mls/hr 11/15/21 23:30 10/14/21 09:55 Sodium Chloride IV 50 mcg/hr Q10H ALESSANDRA 50 mls/hr Administration 50 MCG/HR Sodium Chloride 10 ml 10/13/21 23:21 10/13/21 23:25 Sodium Chloride 0.9% 10 Ml Syringe FLUSH 10 ml ASDIRECTED PRN Administration Keep Vein Open Sodium Chloride 10 ml 10/13/21 23:22 10/13/21 23:47 Sodium Chloride 0.9% 10 Ml Syringe FLUSH 10 ml ASDIRECTED PRN Administration Keep Vein Open Discontinued Medications Generic Name Dose Route Start Last Admin Trade Name Freq PRN Reason Stop Dose Admin Furosemide 40 mg 10/14/21 01:16 10/14/21 05:00 Furosemide 40 Mg/4 Ml Vial IVPUSH 10/14/21 01:17 40 mg ONETIME ONE Administration Furosemide Confirm 10/14/21 04:56 10/14/21 06:19 Furosemide 40 Mg/4 Ml Vial Administered 10/14/21 04:57 Not Given Dose 40 mg .ROUTE .STK-MED ONE Sodium Chloride 1,000 mls @ 1,000 mls/hr 10/13/21 23:30 Normal Saline IV .BOLUS ALESSANDRA Sodium Chloride 1,000 mls @ 999 mls/hr 10/13/21 23:35 10/13/21 23:30 Normal Saline IV 10/14/21 00:35 999 mls/hr ONETIME ONE Administration Lactated Ringer's 1,000 mls @ 999 mls/hr 10/14/21 01:01 10/14/21 01:00 Ringers, Lactated IV 10/14/21 02:01 999 mls/hr BOLUS ONE Administration Sodium Chloride 1,000 mls @ 1,000 mls/hr 10/14/21 09:48 10/14/21 09:58 Normal Saline IV 10/14/21 10:47 1,000 mls/hr .BOLUS ONE Administration Octreotide Acetate 50 mcg 10/13/21 23:24 10/13/21 23:38 Octreotide 100 Mcg/Ml Sdv IVPUSH 10/13/21 23:25 50 mcg ONETIME ONE Administration Ondansetron HCl 4 mg 10/13/21 23:21 10/13/21 23:25 Ondansetron 4 Mg/2 Ml Sdv IVPUSH 10/13/21 23:22 4 mg ONETIME ONE Administration Ondansetron HCl Confirm 10/13/21 23:23 10/13/21 23:27 Ondansetron 4 Mg/2 Ml Sdv Administered 10/13/21 23:24 Not Given Dose 4 mg .ROUTE .STK-MED ONE Pantoprazole Sodium 80 mg 10/13/21 23:22 10/13/21 23:47 Pantoprazole 40 Mg Vial IVPUSH 10/13/21 23:23 80 mg .BOLUS ONE Administration Prochlorperazine Edisylate 5 mg 10/14/21 01:55 10/14/21 02:05 Prochlorperazine 10 Mg/2 Ml Sdv IVPUSH 10/14/21 01:56 5 mg ONETIME ONE Administration Departure - Departure Time of Disposition: 16:40 Condition: Serious Sepsis Event Note (ED) - Focused Exam Vital Signs: Vital Signs Temp Pulse Resp BP Pulse Ox 10/14/21 16:29 57 L 12 92/50 L 98 10/14/21 15:35 36.7 C 58 L 18 101/60 93 L 10/14/21 14:45 11 L 94/44 L 96 10/14/21 13:45 89/46 L 10/14/21 13:15 12 112/66 97 10/14/21 12:56 17 117/67 96 10/14/21 11:52 17 94/56 L 92 L 10/14/21 11:15 35.8 C L 18 98/60 97 10/14/21 10:45 13 98/56 L 96 10/14/21 10:15 95/50 L 10/14/21 09:45 35.8 C L 58 L 16 83/30 L 94 L 10/14/21 09:15 59 L 17 85/46 L 90 L 10/14/21 08:45 19 94/59 L 90 L 10/14/21 08:15 18 97/58 L 92 L 10/14/21 07:45 17 103/59 L 92 L 10/14/21 07:15 18 101/59 L 92 L 10/14/21 06:45 20 101/67 92 L 10/14/21 06:15 59 L 16 113/72 96 10/14/21 05:45 62 14 98/55 L 95 10/14/21 05:23 63 15 110/65 92 L 10/14/21 05:00 64 22 H 103/62 91 L
[2021-10-14] MEDS ORDERED: Lactated Ringers 1,000 ML IV ONE (01:01)
[2021-10-14] MEDS ORDERED: Furosemide 40 MG/4 ML VIAL IVPUSH ONE (01:16)
[2021-10-14] MEDS ORDERED: Prochlorperazine 10 MG/2 ML SDV IVPUSH ONE (01:55)
[2021-10-14] MEDS ORDERED: Furosemide 40 MG/4 ML VIAL ONE (04:56)
[2021-10-14] MEDS ORDERED: Sodium Chloride 0.9% 1,000 ML IV ONE (09:48)
[2021-10-14] MEDS: Octreotide 500 MCG in Sodium Chloride 0.9% 497.5 ML IV SCH (09:55)
[2021-10-14 16:30] VITALS: BP 92/50; PULSE 57
--- NOTE | 2021-10-16 14:45 | CR ---
Abdomen 1V Upright CLINICAL HISTORY: NG tube placement FINDINGS: There is an NG tube which appears to be in the distal portion of the gastric body. There is a right pleural effusion. IMPRESSION: NG tube in the stomach Nonspecific gas pattern Right pleural effusion
== END 2021-10-14 16:52 ==
LOC: JP.ED 23:05
DX: K92.2 Gastrointestinal hemorrhage, unspecified (principal); D50.0 Iron deficiency anemia secondary to blood loss (chronic); I10 Essential (primary) hypertension; Z87.891 Personal history of nicotine dependence; Z91.048 Other nonmedicinal substance allergy status; Z79.82 Long term (current) use of aspirin; Z79.02 Long term (current) use of antithrombotics/antiplatelets; Z79.899 Other long term (current) drug therapy
CPT/HCPCS: 36415; 36430; 74018; 80053; 85025; 85610; 86850; 86900; 86901; 86920; 86922; 96365; 96366; 96375; 99285; C9113; J0780; J1940; J2354; J2405; J7030; J7040; J7120; P9016

== ENCOUNTER 2022-07-16 10:02 | Day surgery (SDC) | payer MEDICARE, OTHER ==
[2022-07-16] MEDS ORDERED: Dextrose 5%-Lactated Ringers 1,000 ML IV SCH (10:45)
[2022-07-16] MEDS ORDERED: Propofol 200 MG/20 ML SDV ONE (13:40)
[2022-07-16] MEDS ORDERED: fentaNYL 100 MCG/2 ML SDV ONE (13:40)
[2022-07-16] MEDS ORDERED: Midazolam 1 MG/ML 2 ML SDV ONE (13:40)
[2022-07-16 16:46] VITALS: PULSE 67
[2022-07-16 17:02] VITALS: BP 111/62
== END 2022-07-16 17:03 | disposition home or self-care (01) ==
LOC: JP.SDS 10:02
PROVIDERS: ATTEND Surgery
DX: Z12.11 Encounter for screening for malignant neoplasm of colon (principal); D12.3 Benign neoplasm of transverse colon; K62.1 Rectal polyp; K64.9 Unspecified hemorrhoids; I25.10 Atherosclerotic heart disease of native coronary artery without angina pectoris; I25.2 Old myocardial infarction; I10 Essential (primary) hypertension; Z86.010 Personal history of colon polyps
CPT/HCPCS: 45380; 45385; 88305; J2250; J2704; J3010; J7121

== ENCOUNTER 2023-11-09 14:59 | Emergency (ER) | payer MEDICARE ==
[2023-11-09] MEDS ORDERED: Sodium Chloride 0.9% 1,000 ML IV ONE (15:37)
[2023-11-09] MEDS ORDERED: Ketorolac 30 MG/ML SDV IVPUSH ONE (15:37)
[2023-11-09] MEDS ORDERED: Sodium Chloride 0.9% 10 ML Syringe FLUSH PRN (15:37)
[2023-11-09 15:55] LABS: BASOPHILS ABSOLUTE AUTO 0.05 K/uL (0.00-0.10); BASOPHILS PERCENT AUTO 0.5 % (0.1-1.3); EOSINOPHILS ABSOLUTE AUTO 0.31 K/uL (0.00-0.40); EOSINOPHILS PERCENT AUTO 3.3 % (0.0-5.4); HEMATOCRIT 51.5 % (38.4-49.7); HEMOGLOBIN 17.3 g/dL (12.9-16.9); IMMATURE GRAN ABSOLUTE AUTO 0.04 K/uL (0.00-0.23); IMMATURE GRAN PERCENT AUTO 0.4 % (0.0-0.7); LYMPHOCYTES ABSOLUTE AUTO 1.99 K/uL (0.8-3.3); LYMPHOCYTES PERCENT AUTO 20.9 % (11.4-47.7); MEAN CORPUSCULAR HEMOGLOBIN 28.6 pg (31.6-35.5); MEAN CORPUSCULAR HGB CONC 33.6 g/dL (31.6-35.5); MEAN CORPUSCULAR VOLUME 85.1 fL (81.4-99.0); MONOCYTES ABSOLUTE AUTO 0.91 K/uL (0.20-0.90); MONOCYTES PERCENT AUTO 9.6 % (3.3-12.6); NEUTROPHILS ABSOLUTE AUTO 6.21 K/uL (1.0-7.6); NEUTROPHILS PERCENT AUTO 65.3 % (40.0-78.1); PLATELET COUNT,PLT 176 K/uL (130-375); RED BLOOD CELL COUNT 6.05 M/uL (4.14-5.76); WHITE BLOOD CELL COUNT,WBC 9.5 K/uL (3.2-11.0)
[2023-11-09 16:19] LABS: A/G RATIO 1.1 (1.2-2.2); ALANINE AMINOTRANSFERASE,ALT 32 U/L (12-78); ALBUMIN 4.1 g/dL (3.4-5.0); ALKALINE PHOSPHATASE 118 U/L (46-116); ANION GAP 12.1 mmol/L (5.0-14.0); ASPARTATE AMNIOTRANSFERASE,AST 34 U/L (15-37); BILIRUBIN TOTAL 0.5 mg/dL (0.2-1.0); BLOOD UREA NITROGEN,BUN 13 mg/dL (7-18); CALCIUM 9.1 mg/dL (8.5-10.1); CARBON DIOXIDE,CO2 31 mmol/L (21-32); CHLORIDE,CL 98 mmol/L (100-108); CREATININE 1.2 mg/dL (0.8-1.3); EST CRCL DRUG DOSING (CG) 63.01 mL/min; ESTIMATED GFR 68 mL/min (>60); GLUCOSE RANDOM 89 mg/dL (74-106); POTASSIUM,K 5.1 mmol/L (3.6-5.2); PROTEIN TOTAL,TP 7.7 g/dL (6.4-8.2); SODIUM,NA 136 mmol/L (140-148); TROPONIN I HIGH SENSITIVITY 6.6 pg/mL (<=60.3)
[2023-11-09] MEDS ORDERED: Cyclobenzaprine 10 MG Tab PO ONE (17:46)
[2023-11-09 18:04] VITALS: BP 131/83; PULSE 56
== END 2023-11-09 19:00 | disposition home or self-care (01) ==
LOC: JP.ED 14:59
DX: S39.011A Strain of muscle, fascia and tendon of abdomen, initial encounter (principal); I10 Essential (primary) hypertension; I25.2 Old myocardial infarction; K21.9 Gastro-esophageal reflux disease without esophagitis; Z79.899 Other long term (current) drug therapy; Z79.82 Long term (current) use of aspirin; Z91.048 Other nonmedicinal substance allergy status; X50.1XXA Overexertion from prolonged static or awkward postures, initial encounter
CPT/HCPCS: 36415; 74176; 80053; 84484; 85025; 93005; 96361; 96374; 99284; A9270; J1885; J7030